=== PATIENT | male | born 1960 | race African-American/Black ===

== ENCOUNTER 2016-08-19 15:34 | Emergency (ER) | payer OTHER ==
[~2016-08-19] VITALS: Ht 157.5 cm; Wt 77.5 kg
[2016-08-19 15:55] VITALS: Ht 157.5 cm; Wt 77.5 kg
[2016-08-19] MEDS ORDERED: SOD CHLORIDE 0.9% 1,000 ML IV STA (16:27)
[2016-08-19] MEDS ORDERED: SOD CHLORIDE 0.9% 1,000 ML IV ONE (16:30)
[2016-08-19] MEDS ORDERED: IBUPROFEN 600 MG TAB PO ONE (16:30)
--- NOTE | 2016-08-19 16:54 | RADRPT ---
PROCEDURE: XR Chest. CLINICAL INDICATION: Shortness of breath. Abdominal pain. TECHNIQUE: Single frontal view. COMPARISON: None. FINDINGS: The right lung is clear. There is left basilar air space disease consistent with atelectasis or pne umonia. There is a small left pleural effusion. The heart size is normal. There is no pleural effusion. There is no pneumothorax. IMPRESSION: 1. Left basilar atelectasis or pneumonia. 2. Small left pleural effusion. 3. Otherwise normal chest x-ray. RPTAT: QQ .Topher Ovalle MD, MD Date Time Electronically viewed and signed by .Topher Ovalle MD, MD on 08/19/2016 16:53 .R/
[2016-08-19] MEDS ORDERED: CEFTRIAXONE 1 GM/50 ML (PMX) 50 ML IVPB ONE (17:00)
[2016-08-19 17:04] LABS: ADD SCAN DIFF NO; BASOPHILS % 0.2 % (0.0-2.0); EOSINOPHILS # 0.2 10^3/ul (0.0-0.5); EOSINOPHILS % 1.4 % (0.0-7.0); HEMATOCRIT 43.5 % (42.0-52.0); HEMOGLOBIN 13.7 g/dl (14.0-18.0); LYMPHOCYTES # 1.9 10^3/ul (0.8-2.9); LYMPHOCYTES % 14.7 % (15.0-51.0); MEAN CORPUSCULAR HEMOGLOBIN 22.3 pg (29.0-33.0); MEAN CORPUSCULAR HGB CONC 31.5 g/dl (32.0-37.0); MEAN CORPUSCULAR VOLUME 70.8 fl (82.0-101.0); MEAN PLATELET VOLUME 9.6 fl (7.4-10.4); MONOCYTE # 1.4 10^3/ul (0.3-0.9); MONOCYTES % 10.5 % (0.0-11.0); NEUTROPHIL # 9.3 10^3/ul (1.6-7.5); NEUTROPHILS % 72.3 % (39.0-77.0); PLATELET COUNT 231 10^3/UL (140-415); RED BLOOD COUNT 6.14 10^6/ul (4.70-6.10); RED CELL DISTRIBUTION WIDTH 17.2 % (11.5-14.5); WHITE BLOOD COUNT 12.8 10^3/ul (4.8-10.8)
[2016-08-19 17:18] LABS: ADD UMIC NO; UR ASCORBIC ACID NEGATIVE (NEGATIVE); UR BILIRUBIN (Dip) NEGATIVE (NEGATIVE); UR BLOOD (Dip) NEGATIVE (NEGATIVE); UR CLARITY CLEAR (CLEAR); UR COLOR STRAW (YELLOW); UR GLUCOSE (Dip) NEGATIVE (NEGATIVE); UR KETONES (Dip) NEGATIVE (NEGATIVE); UR LEUKOCYTE ESTERASE (Dip) NEGATIVE Leu/ul (NEGATIVE); UR NITRITE (Dip) NEGATIVE (NEGATIVE); UR SPECIFIC GRAVITY (Dip) 1.005 (1.003-1.030); UR TOTAL PROTEIN (Dip) NEGATIVE (NEGATIVE); UR UROBILINOGEN (Dip) NEGATIVE (NEGATIVE)
[2016-08-19 17:25] LABS: ALANINE AMINOTRANSFERASE 20 IU/L (13-69); ALBUMIN 4.6 g/dl (3.3-4.9); ALBUMIN/GLOBULIN RATIO 1.35; ALKALINE PHOSPHATASE 135 IU/L (42-121); ANION GAP 12 (8-16); ASPARTATE AMINO TRANSFERASE 15 IU/L (15-46); BILIRUBIN,INDIRECT 0.3 mg/dl (0-1.1); BILIRUBIN,TOTAL 0.3 mg/dl (0.2-1.3); BLOOD UREA NITROGEN 7 mg/dl (7-20); CALCIUM 9.3 mg/dl (8.4-10.2); CARBON DIOXIDE 27 mmol/L (21-31); CHLORIDE 98 mmol/L (97-110); CREATININE 1.01 mg/dl (0.61-1.24); GLUCOSE 101 mg/dl (70-220); SODIUM 134 mmol/L (135-144)
[2016-08-19] MEDS ORDERED: morphine 4 MG/ML VIAL IV STA (17:31)
[2016-08-19] MEDS ORDERED: ONDANSETRON 4 MG INJ IV STA (17:31)
[2016-08-19 17:35] LABS: TROPONIN-I < 0.012 ng/ml (0.00-0.12)
[2016-08-19] MEDS ORDERED: IOHEXOL 100 ML ONE (17:57)
[2016-08-19] MEDS ORDERED: IOHEXOL 350MG/ML 50 ML BTL ONE (17:57)
[2016-08-19] MEDS ORDERED: SOD CHLORIDE 0.9% 100 ML ONE (17:57)
[2016-08-19] MEDS ORDERED: AZITHROMYCIN 500MG/NS (PMX) 250 ML IVPB ONE (18:00)
--- NOTE | 2016-08-19 18:42 | ERA ---
ER Documentation Chief Complaint Date/Time DATE: 08/19/16 TIME: 18:32 Chief Complaint Complains of a cough with SOB HPI 56-year-old man complains of sharp nonexertional nonradiating chest pain or shortness of breath with cough 3 days. Patient has a history of pulmonary embolism diagnosed in June 2016 but states he has been off of his anticoagulant therapy 1 month. He denies vomiting or diarrhea, no headache or blurry vision , no calf or leg swelling. Patient has a history of hypertension and has not been using his medications. ROS All systems reviewed and are negative except as per history of present illness. Medications Home Meds No Active Prescriptions or Reported Meds Allergies Allergies: Coded Allergies: No Known Allergy (Unverified , 08/19/16) PMhx/Soc Hypertension, chronic pain syndrome, pulmonary embolism History of Surgery: Yes (shoulder sx) Anesthesia Reaction: No Hx Neurological Disorder: No Hx Respiratory Disorders: Yes (PE IN JUNE 2016) Hx Cardiac Disorders: Yes (HTN) Hx Psychiatric Problems: No Hx Miscellaneous Medical Probl: No Hx Alcohol Use: No Hx Substance Use: No Hx Tobacco Use: Yes Smoking Status: Former smoker FmHx Family History: No diabetes Physical Exam Vitals Vital Signs Date Time Temp Pulse Resp B/P Pulse Ox O2 Delivery O2 Flow Rate FiO2 08/19/16 16:53 Nasal Cannula 2 08/19/16 16:24 99.6 70 16 189/95 99 Room Air 08/19/16 15:55 100.4 69 20 200/103 98 Physical Exam GENERAL: Well-developed, well-nourished, well-nourished, appears dehydrated, nontoxic in appearance, oxygen saturation 98% on room air. Febrile. HEENT: Dry mucous membranes, pink conjunctiva, no cervical spine tenderness or step-off deformities, no goiter, no jaundice or icterus, extraocular movements intact without pain. No submandibular induration, and no pharyngeal erythema NEURO: Alert and oriented 3, cranial nerves II through XII intact bilaterally, pupils equal round reactive to light, no focal deficits or facial asymmetry, sensation intact distally Strength 5/5 in upper and lower extremities bilaterally CARDIAC: Regular rate and rhythm, no murmurs rubs or gallops LUNGS: Clear bilaterally no wheezing crackles or stridor ABDOMEN: Soft nontender, no guarding, no rigidity, no rebound, no psoas sign no obturator sign. Normoactive bowel sounds SKIN: Warm and dry to touch, no abrasions, contusions, or hematomas, no lacerations, no ecchymosis, no target lesions, and without ulcers EXTREMITIES: No clubbing cyanosis or edema, calves are bilaterally symmetrical, no Homans sign, no popliteal cord sign. Distal pulses equal and bilateral PSYCH: Normal affect without agitation or irritability Result Diagram: 08/19/16 1647 08/19/16 1647 Results 24 hrs Laboratory Tests Test 08/19/16 16:47 White Blood Count 12.810^3/ul Red Blood Count 6.1410^6/ul Hemoglobin 13.7g/dl Hematocrit 43.5% Mean Corpuscular Volume 70.8fl Mean Corpuscular Hemoglobin 22.3pg Mean Corpuscular Hemoglobin Concent 31.5g/dl Red Cell Distribution Width 17.2% Platelet Count 35659^3/UL Mean Platelet Volume 9.6fl Neutrophils % 72.3% Lymphocytes % 14.7% Monocytes % 10.5% Eosinophils % 1.4% Basophils % 0.2% Nucleated Red Blood Cells % 0.0/100WBC Neutrophils # 9.310^3/ul Lymphocytes # 1.910^3/ul Monocytes # 1.410^3/ul Eosinophils # 0.210^3/ul Basophils # 0.010^3/ul Nucleated Red Blood Cells # 0.010^3/ul Urine Color STRAW Urine Clarity CLEAR Urine pH 7.0 Urine Specific [place] 1.005 Urine Ketones NEGATIVEmg/dL Urine Nitrite NEGATIVEmg/dL Urine Bilirubin NEGATIVEmg/dL Urine Urobilinogen NEGATIVEmg/dL Urine Leukocyte Esterase NEGATIVELeu/ul Urine Hemoglobin NEGATIVEmg/dL Urine Glucose NEGATIVEmg/dL Urine Total Protein NEGATIVEmg/dl Sodium Level 134mmol/L Potassium Level 3.0mmol/L Chloride Level 98mmol/L Carbon Dioxide Level 27mmol/L Anion Gap 12 Blood Urea Nitrogen 7mg/dl Creatinine 1.01mg/dl Glucose Level 101mg/dl Lactic Acid Level 1.3mmol/L Calcium Level 9.3mg/dl Total Bilirubin 0.3mg/dl Direct Bilirubin 0.00mg/dl Indirect Bilirubin 0.3mg/dl Aspartate Amino Transf (AST/SGOT) 15IU/L Alanine Aminotransferase (ALT/SGPT) 20IU/L Alkaline Phosphatase 135IU/L Troponin I < 0.012ng/ml Total Protein 8.0g/dl Albumin 4.6g/dl Globulin 3.40g/dl Albumin/Globulin Ratio 1.35 Lipase 38U/L Current Medications Medications (Trade) Dose Ordered Sig/Richelle Route PRN Reason Start Time Stop Time Status Last Admin Dose Admin Sodium Chloride (NS) 1,000 ml @ 1,000 mls/hr Q1H STAT IV 08/19/16 16:27 08/19/16 17:26 DC 08/19/16 17:15 Ibuprofen 600 mg 600 mg ONCE ONCE PO 08/19/16 16:30 08/19/16 16:31 DC 08/19/16 17:15 Sodium Chloride 1,000 ml @ 1,000 mls/hr Q1H ONCE IV 08/19/16 16:30 08/19/16 17:29 DC 08/19/16 17:16 Ceftriaxone Sodium (Rocephin) 50 ml @ 100 mls/hr ONCE ONCE IVPB 08/19/16 17:00 08/19/16 17:29 DC 08/19/16 17:15 Clonidine (Catapres) 0.1 mg ONCE ONCE PO 08/19/16 17:00 08/19/16 17:01 DC 08/19/16 17:15 Morphine Sulfate (morphine) 4 mg ONCE STAT IV 08/19/16 17:31 08/19/16 17:33 DC 08/19/16 17:44 Ondansetron HCl 4 mg 4 mg ONCE STAT IV 08/19/16 17:31 08/19/16 17:33 DC 08/19/16 17:44 Azithromycin (Zithromax 500mg/ NS (Pmx)) 250 ml @ 250 mls/hr ONCE ONCE IVPB 08/19/16 18:00 08/19/16 18:59 08/19/16 17:44 IV Flush 10 ml 10 ml STK-MED ONCE .ROUTE 08/19/16 17:57 08/19/16 17:58 DC Sodium Chloride 100 ml @ ud STK-MED ONCE .ROUTE 08/19/16 17:57 08/19/16 17:58 DC Iohexol (Omnipaque) 100 ml @ ud STK-MED ONCE .ROUTE 08/19/16 17:57 08/19/16 17:58 DC Iohexol (Omnipaque 350mg/ ml) 50 ml STK-MED ONCE .ROUTE 08/19/16 17:57 08/19/16 17:58 DC Procedures/MDM IV line was established patient was placed on advertising sales agent rhythm strip revealed a sinus rhythm at about 60 bpm with upright P and T waves. Patient was febrile. Blood and urine cultures have been ordered results are pending I will follow-up. Patient received about 2.5 L normal saline IV, ibuprofen 600 mg p.o., and ceftriaxone 1 g IV. EKG performed, read by me: 63 bpm, normal sinus rhythm, normal axis, no acute ST segment changes, narrow QRS complex, with good R-wave progression in precordial leads. Chest X-ray 1V Interpreted by me: Soft Tissue: No acute abnormalities Bones: No acute abnormalities Mediastinum/Cardiac Silhouette/Lungs: Small pleural effusion on the left side, possible early infiltrate CT angiogram of the chest has been ordered to rule out pulmonary embolism. Results are pending I will follow-up, although anticoagulant therapy will be deferred to PMD pending CTA I also added azithromycin 500 mg IV 1. CBC was unremarkable, electrolytes normal, liver function tests normal, troponin was negative. Lactic acid was low at 1.3. I do not suspect sepsis. I do not suspect sepsis. Patient was initially hypertensive and received clonidine 0.1 mg p.o., also administered morphine and Zofran IV. Critical Care: Time: 37 minutes, this was time separate from other billable procedures. Treatments/Evaluations: Close monitoring and treatment of unstable vital signs, cardiorespiratory, and neurologic status, while maintaining tight balance of fluid, respiratory, and cardiac interventions. Patient will be admitted to telemetry setting for continued medical management and pulmonology consultation. Departure Diagnosis: Primary Impression: Pulmonary embolism Qualified Code: I26.09 - Other acute pulmonary embolism with acute cor pulmonale Additional Impressions: Pneumonia Qualified Code: J18.1 - Pneumonia of left lower lobe due to infectious organism Hypertension Qualified Code: I10 - Essential hypertension Chest pain Qualified Code: R07.9 - Chest pain, unspecified type Condition: STAN Mccormick MD Aug 19, 2016 18:42
[2016-08-19] MEDS ORDERED: SOD CHLORIDE 0.9% 500 ML IV ONE (19:00)
[2016-08-19] MEDS ORDERED: ACETAMINOPHEN 325 MG TAB PO PRN (19:30)
[2016-08-19] MEDS ORDERED: morphine 2 MG INJ IV PRN (19:30)
[2016-08-19] MEDS ORDERED: NACL 0.9% 3 ML SYG IV SCH (19:30)
[2016-08-19] MEDS ORDERED: ONDANSETRON 4 MG INJ IV PRN (19:30)
--- NOTE | 2016-08-19 20:04 | RADRPT ---
PROCEDURE: CT chest with contrast/PE protocol CLINICAL INDICATION: Chest pain and shortness of breath. Clinical concern for pulmonary embolism. History of hypertension and pulmonary embolism in June 2016 TECHNIQUE: The study was performed from the thoracic inlet to the upper abdomen with the use of 12 0 cc of Omnipaque 350 intravenous contrast material per PE protocol. Coronal/sagittal reformatted im ages and coronal MIP images were generated. The images were reviewed on a PACS workstation. CTDIvol = 38.96 mGy and DLP= 546.38 mGycm. COMPARISON: Chest x-ray 08/19/2016 FINDINGS: Lungs, airway and pleura: The trachea and bronchi are patent as well as normal in caliber. Patchy ground-glass infiltrate within the inferior lingula and majority of the left lower lobe is concernin g for pneumonitis/pneumonia with additional subsegmental atelectasis of the left greater than right lower lobe. There is no evidence of mass. Subpleural bullous emphysema of the upper lobes is prese nt. The pleural spaces are clear, without effusions. Mediastinum, sebastián and cardiovascular: The heart is mildly enlarged. There is no evidence for peric ardial effusion. The thoracic aorta is normal in caliber and without evidence of dissection. Fillin g defects in the pulmonary arteries are present greater on the left in the first through third order branches of the left lower lobe with additional embolus and the second order branch of the left upp er lobe (series 3 images 80-118). Additional pulmonary emboli are present within the right lower lo be, second and third order branches. No pulmonary saddle embolism is present. There is no evidence o f right ventricular strain pattern. The azygos vein is not dilated There is no evidence for hilar m ass and no mediastinal adenopathy is present. The esophagus is normal in caliber. Osseous structures and musculoskeletal findings: There is preservation of bone architecture and min eralization with no evidence for fracture, lytic or blastic lesion. No chest wall abnormalities are present. The axillary regions are unremarkable. Visualized upper abdomen: No abnormalities are identified. The adrenal glands are normal bilateral ly. RPTAT:HJJR IMPRESSION: 1. Bilateral pulmonary emboli involving the left greater than right lower lobe without evidence of r ight ventricular strain pattern, the clot burden estimated as moderate. 2. Ground-glass infiltrates of the inferior lingula and left lower lobe consistent with pneumonia s uperimposed upon bibasilar subsegmental atelectasis and subpleural emphysema. 3. Mild cardiomegaly. 4. Critical results are discussed by telephone with Dr. Weber at 20:04. Physician Lianna Date Time Electronically viewed and signed by Dereck Bradshaw Physician on 08/19/2016 20:04 JR/
[2016-08-20 01:00] VITALS: BP 147/109; PULSE 70; RESP 24; TEMP 98.2
[2016-08-20] MEDS ORDERED: ENOXAPARIN 40 MG/0.4 ML SYG SC SCH (09:00)
[2016-08-20] MEDS ORDERED: CEFTRIAXONE 1 GM/50 ML (PMX) 50 ML IVPB SCH (17:00)
== END 2016-08-20 01:31 | disposition left against medical advice (07) ==
LOC: E/R 15:34
DX: I26.09 Other pulmonary embolism with acute cor pulmonale (principal); J18.1 Lobar pneumonia, unspecified organism; I10 Essential (primary) hypertension; R07.9 Chest pain, unspecified; Z87.891 Personal history of nicotine dependence
CPT/HCPCS: 36415; 71010; 71275; 80053; 81003; 83605; 83690; 84484; 85025; 87040; 87086; 93005; 96374; 96375; 96376; J0456; J0696; J2270; J2405; J7030; J7040; Q9967; Z7502; Z7610

== ENCOUNTER 2016-08-20 14:20 | Inpatient (IN) | payer OTHER ==
[~2016-08-20] VITALS: Ht 172.7 cm; Wt 70.7 kg
[2016-08-20] MEDS ORDERED: ENOXAPARIN 80 MG/0.8 ML SYG SC STA (14:51)
[2016-08-20] MEDS ORDERED: ONDANSETRON 4 MG INJ IV STA (14:58)
[2016-08-20] MEDS ORDERED: IPRATROPIUM (NEB) 0.5 MG/2.5 ML AMP NEB STA (14:58)
[2016-08-20] MEDS ORDERED: HYDROmorphONE 1 MG/ML SYG IV STA (14:58)
[2016-08-20] MEDS ORDERED: ALBUTEROL 0.083% (NEB) 2.5 MG/3 ML AMP NEB STA (14:58)
--- NOTE | 2016-08-20 15:03 | ERA ---
ER Documentation Chief Complaint Date/Time DATE: 08/20/16 TIME: 14:59 Chief Complaint sob x 4 days HPI This is a 56-year-old -[place] male with known history of a pulmonary embolism and hypertension. The patient was diagnosed in June 2016 at [facility] with a pulmonary embolism. He had been taking Lovenox but indicates for the past month he had not taken any anticoagulants. He continued to feel very short of breath and therefore presented to [facility] less than 24 hours ago for reevaluation. A CT scan angiogram performed by the emergency room physician who evaluated the patient at the time and given that the patient had bilateral pulmonary emboli with the left greater than the right. The patient also had a chest radiograph that showed a questionable left basilar pneumonia. The patient had been admitted under the care of Dr. Styles and had been given antibiotics however the patient stated he had to leave AGAINST MEDICAL ADVICE as he lives in a motor home and was concerned that he would lose his home as he had a document that he needed to sign. He returns today for persistent pain over the bilateral thoracic region, difficulty breathing and shortness of breath. He denies any hemoptysis hematemesis or melanotic stools. He smokes tobacco and denies a productive or nonproductive cough. He has had no fevers or shaking no chills. He also has a history of hypertension and has not taken any of his medications according to his fiance. He denies a headache. He has no chest pain or pressure that radiates to the neck arm back or jaw ROS All systems reviewed and are negative except as per history of present illness. Medications Home Meds No Active Prescriptions or Reported Meds Allergies Allergies: Coded Allergies: No Known Allergy (Unverified , 08/20/16) PMhx/Soc History of Surgery: Yes (shoulder sx) Anesthesia Reaction: No Hx Neurological Disorder: No Hx Respiratory Disorders: Yes (PE IN JUNE 2016) Hx Cardiac Disorders: Yes (HTN) Hx Psychiatric Problems: No Hx Miscellaneous Medical Probl: No Hx Alcohol Use: No Hx Substance Use: No Hx Tobacco Use: Yes Physical Exam Vitals Vital Signs Date Time Temp Pulse Resp B/P Pulse Ox O2 Delivery O2 Flow Rate FiO2 08/20/16 14:22 99.7 71 18 166/90 93 Physical Exam Constitutional:Well-developed. Well-nourished. Patient moaning in pain. HEENT:Normocephalic. Atraumatic.Pupils were equal round reactive to light. Moist mucous membranes.No tonsillar exudates. Neck: No nuchal rigidity. No lymphadenopathy. No posterior cervical spine tenderness or step-offs. Respiratory: Not using accessory muscles of respiration.Lungs were clear to auscultation bilaterally. No rhonchi. No rales. No wheezing. Cardiovascular: Regular rate regular rhythm.No murmurs. No rubs were appreciated.S1, S2 normal. Distal pulses are palpable 2+ bilaterally. GI: Abdomen was soft. Nontender. Non Distended. No pulsatile abdominal masses or bruits. No rebound. No guarding. Bowel sounds were present and normal. Muscle skeletal: Full range of motion of both the upper and lower extremities bilaterally.Normal muscle tone.No assymetrical calf tenderness or swelling. Skin: No petechia, no purpura. No lesions on the palms or the soles of the feet. No maculopapular rash. NEURO: Patient was alert, awake, orientated x3.No facial droop. Gait observed and normal with no ataxia.Speech had regular rate and rhythm. No focal neurological deficits. Result Diagram: 08/20/16 1510 Results 24 hrs Laboratory Tests Test 08/20/16 15:10 White Blood Count 15.210^3/ul Red Blood Count 6.4510^6/ul Hemoglobin 14.6g/dl Hematocrit 46.7% Mean Corpuscular Volume 72.4fl Mean Corpuscular Hemoglobin 22.6pg Mean Corpuscular Hemoglobin Concent 31.3g/dl Red Cell Distribution Width 16.1% Platelet Count 70490^3/UL Mean Platelet Volume 9.7fl Neutrophils % 76.6% Lymphocytes % 11.8% Monocytes % 10.3% Eosinophils % 0.3% Basophils % 0.3% Nucleated Red Blood Cells % 0.0/100WBC Neutrophils # 11.710^3/ul Lymphocytes # 1.810^3/ul Monocytes # 1.610^3/ul Eosinophils # 0.110^3/ul Basophils # 0.010^3/ul Nucleated Red Blood Cells # 0.010^3/ul Prothrombin Time 12.8Sec Prothrombin Time Ratio 1.0 INR International Normalized Ratio 0.96 Activated Partial Thromboplast Time 27.9Sec Current Medications Medications (Trade) Dose Ordered Sig/Richelle Route PRN Reason Start Time Stop Time Status Last Admin Dose Admin Enoxaparin Sodium (Lovenox) 77 mg ONCE STAT SC 08/20/16 14:51 08/20/16 14:55 DC Hydromorphone HCl (Dilaudid) 1 mg ONCE STAT IV 08/20/16 14:58 08/20/16 14:59 DC Ondansetron HCl (Zofran Inj) 4 mg ONCE STAT IV 08/20/16 14:58 08/20/16 14:59 DC Albuterol (Proventil 0.083% (Neb)) 5 mg ONCE STAT NEB 08/20/16 14:58 08/20/16 15:00 DC Ipratropium [place] (Atrovent 0.02% (Neb)) 0.5 mg ONCE STAT NEB 08/20/16 14:58 08/20/16 15:00 DC Ondansetron HCl (Zofran Inj) 4 mg BRIDGE ORDER PRN IV NAUSEA AND/OR VOMITING 08/20/16 16:00 08/21/16 15:59 Procedures/MDM This patient presented to the emergency department with a known history of a pulmonary embolism. The patient was immediately placed in a child monitor continuous pulse oximetry and IV access was established by nursing staff. The patient received nebulizer treatments and for analgesic control received intravenous Dilaudid and Zofran. I do not feel is necessary to repeat the CT scan at this time as I reviewed the results from yesterday which indicated bilateral pulmonary emboli. The patient was given subcutaneous Lovenox in the emergency department after ancillary laboratory work and coagulation panel was obtained. Blood cultures had already been drawn yesterday. The patient had a questionable pneumonia and had been given IV antibiotics on his previous hospital visit less than 24 hours ago. Those antibiotics which included azithromycin and ceftriaxone will continue to be reordered by myself. 12 Lead EKG tracing ordered and reviewed by myself showed: Normal sinus rhythm of 69 bpm and no arrhythmia. NM interval normal. QRS duration normal. No ST segment elevation No ST segment depression. No changes consistent with acute ischemia. I repeated a 1 view chest radiograph which showed a persistent atelectasis in the left basilar region. The patient will be admitted in serious condition to the medical surgical floor under the care of Dr. Jiang who I spoke with and will be admitted with an anticipated stay of greater than 2 midnights Critical Care: Time: 35 minutes Treatments/Evaluations: Close monitoring and treatment of unstable vital signs, cardiorespiratory, and neurologic status, while maintaining tight balance of fluid, respiratory, and cardiac interventions. Time does not include performing any of the above billable procedures. Departure Diagnosis: Primary Impression: Pulmonary embolism Qualified Code: I27.82 - Other chronic pulmonary embolism without acute cor pulmonale Additional Impression: Pneumonia Qualified Code: J18.9 - Pneumonia of left lung due to infectious organism, unspecified part of lung Condition: Serious KACIE QUINN Aug 20, 2016 15:03
[2016-08-20 15:16] LABS: ADD SCAN DIFF NO
[2016-08-20 15:19] LABS: ABNORMAL IP MESSAGE 1; BASOPHILS % 0.3 % (0.0-2.0); EOSINOPHILS # 0.1 10^3/ul (0.0-0.5); EOSINOPHILS % 0.3 % (0.0-7.0); HEMATOCRIT 46.7 % (42.0-52.0); HEMOGLOBIN 14.6 g/dl (14.0-18.0); LYMPHOCYTES # 1.8 10^3/ul (0.8-2.9); LYMPHOCYTES % 11.8 % (15.0-51.0); MEAN CORPUSCULAR HEMOGLOBIN 22.6 pg (29.0-33.0); MEAN CORPUSCULAR HGB CONC 31.3 g/dl (32.0-37.0); MEAN CORPUSCULAR VOLUME 72.4 fl (82.0-101.0); MEAN PLATELET VOLUME 9.7 fl (7.4-10.4); MONOCYTE # 1.6 10^3/ul (0.3-0.9); MONOCYTES % 10.3 % (0.0-11.0); NEUTROPHIL # 11.7 10^3/ul (1.6-7.5); NEUTROPHILS % 76.6 % (39.0-77.0); PLATELET COUNT 251 10^3/UL (140-415); RED BLOOD COUNT 6.45 10^6/ul (4.70-6.10); RED CELL DISTRIBUTION WIDTH 16.1 % (11.5-14.5); WHITE BLOOD COUNT 15.2 10^3/ul (4.8-10.8)
[2016-08-20 15:33] LABS: INR 0.96; PROTIME 12.8 Sec (12.2-14.2)
[2016-08-20 15:34] LABS: PARTIAL THROMBOPLASTIN TIME 27.9 Sec (25.0-35.0)
[2016-08-20 15:36] LABS: ALBUMIN 4.9 g/dl (3.3-4.9); ALBUMIN/GLOBULIN RATIO 1.25; BILIRUBIN,INDIRECT 0.8 mg/dl (0-1.1); BILIRUBIN,TOTAL 0.8 mg/dl (0.2-1.3); CALCIUM 9.9 mg/dl (8.4-10.2); CREATININE 1.03 mg/dl (0.61-1.24); TOTAL PROTEIN 8.8 g/dl (6.1-8.1)
[2016-08-20] MEDS ORDERED: CIPROFLOXACIN 400MG/D5W 200 ML IVPB STA (15:40)
[2016-08-20] MEDS ORDERED: AZITHROMYCIN 500MG/NS (PMX) 250 ML IV STA (15:40)
[2016-08-20 15:49] LABS: CK-MB 0.29 ng/ml (0.0-2.4); TROPONIN-I 0.019 ng/ml (0.00-0.12)
--- NOTE | 2016-08-20 15:52 | RADRPT ---
PROCEDURE: XR Chest. CLINICAL INDICATION: Chest pain. TECHNIQUE: Single frontal view of the chest was obtained. COMPARISON: None FINDINGS: Monitoring electrodes project across the chest. There are degenerative osteophytes in the thoracic spine. The heart is enlarged. The cardiomediastinal silhouette and hilar structures are normal. Th e pulmonary vasculature is upper limits of normal. There is a left-sided aorta. There is a left lowe r lobe infiltrate silhouetting the left diaphragm. There is infiltrate silhouetting portions of the left heart border. A left pleural effusion is not excluded. The right costophrenic angle is normal . IMPRESSION: 1. Infiltrates identified in the lingula and left lower lobe suspicious for pneumonia. A left pleur al effusion is not excluded. RPTAT:AAJJ Physician Richelle Date Time Electronically viewed and signed by Lawrence Enriquez Physician on 08/20/2016 15:52 JOSE/
[2016-08-20] MEDS ORDERED: ONDANSETRON 4 MG INJ IV PRN ×2 (16:00→21:00)
[2016-08-20] MEDS ORDERED: LORAZEPAM 2 MG INJ IV ONE (16:00)
[2016-08-20 16:25] LABS: MODE MASK - SIMPLE; MetHgb Venous 0.3 %; Sample Type Blood venous; Venous COHb 1.8 %; Venous Fraction OxyHgb 33.9 %; Venous Total Hemglobin 15.5 g/dl
--- NOTE | 2016-08-20 18:40 | HP ---
Date/Time of Note Date/Time of Note DATE: 08/20/16 TIME: 18:31 Assessment/Plan VTE Prophylaxis VTE Prophylaxis Intervention: SCD's Lines/Catheters IV Catheter [facility]from [facility]): Saline Lock Assessment/Plan Assessment/Plan - Pulmonary embolism, continue Lovenox. Dr. Lopez will be following patient in pulmonology consultation. - Pneumonia, continue broad-spectrum antibiotics. - Hypertension, continue hydralazine as needed for systolic blood pressure above 170 -Tobacco dependence, cessation is strongly advised. Further recommendations based on clinical course. End of care discussed with Dr. Madrid. HPI/ROS Admit Date/Time Admit Date/Time Hx of Present Illness Patient is a 56-year-old -[place] male with history of pulmonary embolism and hypertension. Patient was diagnosed with pulmonary embolism in June 2016 and been taking Lovenox she stopped taking last month. Patient presented to the emergency room last night with complaints of shortness of breath. He underwent CT scan and was diagnosed with pneumonia, bilateral pulmonary emboli as well as cardiomegaly. Patient left AGAINST MEDICAL ADVICE at 1:30 in the morning. Patient came back in the emergency room with complaints of bilateral thoracic pain and shortness of breath. Patient is currently lethargic but easily arousable most of the history was obtained from medical records talking to patient talking to patient's girlfriend Marie at the bedside. Patient denies any chest pain denies any nausea vomiting denies any bilateral lower extremity swelling denies fevers chills. ROS 12 point review of systems is negative unless mentioned in HPI PMH/Family/Social Past Medical History Medical History: hypertension, other (Pulmonary emboli) Past Surgical History Left shoulder surgery details are not available Family History Significant Family History: no pertinent family hx Social History Alcohol Use: occasionally Smoking Status: Current every day smoker Drug Use: none Exam/Review of Systems Vital Signs Vitals Vital Signs Date Time Temp Pulse Resp B/P Pulse Ox O2 Delivery O2 Flow Rate FiO2 08/20/16 17:19 80 30 144/89 99 Nasal Cannula 3.0 08/20/16 14:22 99.7 Exam Constitutional: alert, oriented Psych: no complaints Head: atraumatic, normocephalic Eyes: nl conjunctiva Neck: supple Respiratory: diminished breath sounds Cardiovascular: nl pulses Gastrointestinal: non-tender, soft Musculoskeletal: nl extremities to inspection Extremities: normal pulses Neurological: nl mental status Skin: nl turgor Labs Result Diagram: 08/20/16 1510 08/20/16 1510 GUNJAN PETTY Aug 20, 2016 18:40
[2016-08-20 18:59] VITALS: BP 181/95; PULSE 79; RESP 18
[2016-08-20 19:31] VITALS: BP 165/81; RESP 18
[2016-08-20 20:00] VITALS: Ht 172.7 cm; Wt 70.7 kg
[2016-08-20] MEDS: AMLODIPINE 10 MG TAB PO SCH (21:26)
[2016-08-20] MEDS: HYDROCODONE/APAP (5/325) TAB PO PRN (21:27)
[2016-08-20] MEDS: ENOXAPARIN 80 MG/0.8 ML SYG SC SCH (21:36)
[2016-08-20] MEDS: ACETAMINOPHEN 325 MG TAB PO PRN (23:21)
[2016-08-21] MEDS: CEFTRIAXONE 1 GM/50 ML (PMX) 50 ML IVPB SCH ×2 (00:24→23:03)
[2016-08-21] MEDS: LEVOFLOXACIN 500MG/D5W (PMX) 100 ML IVPB SCH (01:25)
[2016-08-21 02:07] VITALS: BP 113/71; RESP 18
[2016-08-21] MEDS: HYDROCODONE/APAP (5/325) TAB PO PRN ×3 (02:35→18:36)
[2016-08-21] MEDS: morphine 2 MG INJ IV PRN ×2 (06:36→14:24)
[2016-08-21 07:39] VITALS: BP 130/76; RESP 18
[2016-08-21 08:17] LABS: ADD UMIC YES; UR BILIRUBIN (Dip) 1+ (NEGATIVE); UR BLOOD (Dip) NEGATIVE (NEGATIVE); UR CLARITY CLEAR (CLEAR); UR COLOR YELLOW (YELLOW); UR GLUCOSE (Dip) NEGATIVE (NEGATIVE); UR KETONES (Dip) NEGATIVE (NEGATIVE); UR LEUKOCYTE ESTERASE (Dip) NEGATIVE (NEGATIVE); UR NITRITE (Dip) NEGATIVE (NEGATIVE); UR TOTAL PROTEIN (Dip) 1+ (NEGATIVE); UR UROBILINOGEN (Dip) 1.0 E.U./dL (0.1-1.0)
[2016-08-21 08:42] LABS: ADD SCAN DIFF NO
[2016-08-21 08:47] LABS: ICTOTEST NEGATIVE (NEGATIVE)
[2016-08-21 08:53] LABS: ABNORMAL IP MESSAGE 1; BASOPHILS % 0.2 % (0.0-2.0); EOSINOPHILS # 0.1 10^3/ul (0.0-0.5); EOSINOPHILS % 0.8 % (0.0-7.0); HEMATOCRIT 43.8 % (42.0-52.0); HEMOGLOBIN 13.6 g/dl (14.0-18.0); LYMPHOCYTES # 1.8 10^3/ul (0.8-2.9); LYMPHOCYTES % 14.1 % (15.0-51.0); MEAN CORPUSCULAR HEMOGLOBIN 22.1 pg (29.0-33.0); MEAN CORPUSCULAR HGB CONC 31.1 g/dl (32.0-37.0); MEAN CORPUSCULAR VOLUME 71.3 fl (82.0-101.0); MEAN PLATELET VOLUME 9.9 fl (7.4-10.4); MONOCYTE # 1.7 10^3/ul (0.3-0.9); MONOCYTES % 12.9 % (0.0-11.0); NEUTROPHIL # 9.2 10^3/ul (1.6-7.5); NEUTROPHILS % 71.3 % (39.0-77.0); PLATELET COUNT 271 10^3/UL (140-415); RED BLOOD COUNT 6.14 10^6/ul (4.70-6.10); RED CELL DISTRIBUTION WIDTH 16.9 % (11.5-14.5); WHITE BLOOD COUNT 12.9 10^3/ul (4.8-10.8)
[2016-08-21 09:09] LABS: CALCIUM 9.3 mg/dl (8.4-10.2); CREATININE 1.26 mg/dl (0.61-1.24); POTASSIUM 3.6 mmol/L (3.5-5.1)
[2016-08-21] MEDS: ENOXAPARIN 80 MG/0.8 ML SYG SC SCH (09:59)
[2016-08-21 10:02] VITALS: BP 137/77; PULSE 69
[2016-08-21] MEDS: AMLODIPINE 10 MG TAB PO SCH (10:02)
--- NOTE | 2016-08-21 11:37 | RADRPT ---
PROCEDURE: XR Chest. CLINICAL INDICATION: Cough. TECHNIQUE: Two views. Frontal and lateral. COMPARISON: No prior study is available for comparison. FINDINGS: There is air space disease in the left mid and lower lung zones consistent with pneumonia. The righ t lung is clear. The heart size is normal. There is a small left pleural effusion. There is no pneumothorax. IMPRESSION: 1. Left mid and lower lung zone pneumonia. 2. Left pleural effusion. 3. Otherwise unremarkable chest x-ray. RPTAT: QQ .Topher Ovalle MD, MD Date Time Electronically viewed and signed by .Topher Ovalle MD, MD on 08/21/2016 11:36 .R/
--- NOTE | 2016-08-21 12:31 | CONS ---
Date/Time of Note Date/Time of Note DATE: 08/21/16 TIME: 12:27 Assessment/Plan Assessment/Plan Chief Complaint/Hosp Course Assessment 1. Recent PE DVT, likely noncompliance 2. Community acquired pneumonia 3 Questionable psychiatric disorder 4. Probable COPD with ongoing tobacco use. Plan. 1. Continue anticoagulation consider use of Eliquis 2. Continue antibiotics 3. Bronchodilators 4. Encourage smoking cessation Problems: Consultation Date/Type/Reason Admit Date/Time Date of Consultation: Aug 21, 2016 Reason for Consultation Evaluation of pulmonary embolus Hx of Present Illness 66-year-old gentleman who was originally diagnosed with PE and DVT more than a month ago at [facility] says he was discharged home on no anticoagulation. States he is taking no anticoagulation since his discharge. Presented with increasing shortness of breath orthopnea PND. Found to have persistent pulmonary emboli. In addition has evidence of possible underlying pneumonia. Patient is a poor historian and appears to have possible underlying psychiatric disorder. He has a positive tobacco history. Psychological: no complaints Past Medical History Medical History: hypertension, other (Pulmonary emboli) Social History Alcohol Use: occasionally Smoking Status: Current every day smoker Drug Use: none Exam/Review of Systems Vital Signs Vitals Vital Signs Date Time Temp Pulse Resp B/P Pulse Ox O2 Delivery O2 Flow Rate FiO2 08/21/16 10:02 69 137/77 08/21/16 07:39 100.1 18 91 08/20/16 22:03 Nasal Cannula 2.0 Intake and Output 08/20/16 08/20/16 08/21/16 15:00 23:00 07:00 Intake Total 450 ml 560 ml Output Total 600 ml Balance 450 ml -40 ml Exam GENERAL: VITAL SIGNS: per chart NECK: Supple. No JVD or lymphadenopathy. CARDIAC EXAM: S1, S2. No added sounds or murmurs. CHEST: clear bilaterally, No added sounds, rales or wheezes ABDOMEN: Soft, nontender. No guarding or rebound. EXTREMITIES: No cyanosis, clubbing or edema. NEUROLOGIC: Generalized weakness. No focal deficits. Results Result Diagram: 08/21/16 0750 08/21/16 0750 Results 24 hrs Laboratory Tests Test 08/20/16 14:51 08/20/16 15:10 08/20/16 23:30 08/21/16 07:50 Blood Gas Specimen Source Blood venous Arterial Blood Date Drawn 08/20/2016 4:18:59 PM Arterial Blood Gas Puncture Site VENOUS LINE Roberto Test N/A Venous Blood pH 7.310 L Venous Blood pCO2 (Temp Corrected) 55.9 H Venous Blood pO2 (Temp Corrected) 22.5 L Venous Blood HCO3 27.5 Venous Blood Oxygen Saturation 34.6 L Venous Blood Base Excess 0 Venous Blood Total Hemoglobin 15.5 Venous Blood Oxyhemoglobin 33.9 Venous Blood Methemoglobin 0.3 Carboxyhemoglobin 1.8 Blood Gas Temperature 37.0 Blood Gas Modality MASK - SIMPLE FiO2 45.0 Blood Gas Notified Whom M.D. Blood Gas Notified Time 08/20/2016 4:24:19 PM White Blood Count 15.2 H 12.9 H Red Blood Count 6.45 H 6.14 H Hemoglobin 14.6 13.6 L Hematocrit 46.7 43.8 Mean Corpuscular Volume 72.4 L 71.3 L Mean Corpuscular Hemoglobin 22.6 L 22.1 L Mean Corpuscular Hemoglobin Concent 31.3 L 31.1 L Red Cell Distribution Width 16.1 H 16.9 H Platelet Count 251 271 Mean Platelet Volume 9.7 9.9 Neutrophils % 76.6 71.3 Lymphocytes % 11.8 L 14.1 L Monocytes % 10.3 12.9 H Eosinophils % 0.3 0.8 Basophils % 0.3 0.2 Nucleated Red Blood Cells % 0.0 0.0 Neutrophils # 11.7 H 9.2 H Lymphocytes # 1.8 1.8 Monocytes # 1.6 H 1.7 H Eosinophils # 0.1 0.1 Basophils # 0.0 0.0 Nucleated Red Blood Cells # 0.0 0.0 Prothrombin Time 12.8 Prothrombin Time Ratio 1.0 INR International Normalized Ratio 0.96 Activated Partial Thromboplast Time 27.9 Sodium Level 143 143 Potassium Level 4.0 3.6 Chloride Level 96 L 97 Carbon Dioxide Level 28 28 Anion Gap 23 #H 22 H Blood Urea Nitrogen 7 14 Creatinine 1.03 1.26 H Glucose Level 117 114 Calcium Level 9.9 9.3 Total Bilirubin 0.8 Direct Bilirubin 0.00 Indirect Bilirubin 0.8 Aspartate Amino Transf (AST/SGOT) 22 Alanine Aminotransferase (ALT/SGPT) 21 Alkaline Phosphatase 135 H Creatine Kinase 104 Creatine Kinase Index 0.3 Creatinine Kinase MB (Mass) 0.29 Troponin I 0.019 B-Type Natriuretic Peptide 564 H Total Protein 8.8 H Albumin 4.9 Globulin 3.90 H Albumin/Globulin Ratio 1.25 Urine Color YELLOW Urine Clarity CLEAR Urine pH 6.0 Urine Specific [place] >=1.030 H Urine Ketones NEGATIVE Urine Nitrite NEGATIVE Urine Bilirubin 1+ H Urine Ictotest NEGATIVE Urine Urobilinogen 1.0 E.U./dL Urine Leukocyte Esterase NEGATIVE Urine Hemoglobin NEGATIVE Urine Glucose NEGATIVE Urine Total Protein 1+ H Medications Medications Current Medications Enoxaparin Sodium (Lovenox) 75 mg Q12 SC Last administered on 08/21/16 09:59; Admin Dose 75 MG; Start 08/20/16 at 21:00 Acetaminophen/ Hydrocodone Bitart ([place] (5/325)) 1 tab Q4H PRN PO FOR PAIN Last administered on 08/21/16 08:26; Admin Dose 1 TAB; Start 08/20/16 at 21:00 Amlodipine Besylate (Norvasc) 10 mg DAILY PO Last administered on 08/21/16 10: 02; Admin Dose 10 MG; Start 08/20/16 at 21:00 Zolpidem Tartrate (Ambien) 5 mg HS PRN PO INSOMNIA; Start 08/20/16 at 21:00 Acetaminophen (Tylenol Tab) 650 mg Q4H PRN PO PAIN AND OR ELEVATED TEMP Last administered on 08/20/16 23:21; Admin Dose 650 MG; Start 08/20/16 at 21:00 Ondansetron HCl 4 mg 4 mg Q6H PRN IV NAUSEA AND/OR VOMITING; Start 08/20/16 at 21:00 Ceftriaxone Sodium 50 ml @ 100 mls/hr Q24H IVPB Last administered on 00:24; Admin Dose 100 MLS/HR; Start 08/21/16 at 00:00 Levofloxacin/ Dextrose (Levaquin 500mg/ D5W 100 ml (Pmx)) 100 ml @ 100 mls/hr Q24H IVPB Last administered on 08/21/16 01:25; Admin Dose 100 MLS/HR; Start at 01:00 Morphine Sulfate (morphine) 2 mg Q3H PRN IV FOR SEVERE PAIN Last administered on 08/21/16 06:36; Admin Dose 2 MG; Start 08/21/16 at 03:30 BROOKLYN DUFFY MD, [facility] Aug 21, 2016 12:30
--- NOTE | 2016-08-21 14:28 | PN ---
Date/Time of Note Date/Time of Note DATE: 08/21/16 TIME: 14:25 Assessment/Plan VTE Prophylaxis VTE Prophylaxis Intervention: other Lines/Catheters [facility] Saline Lock Urinary Cath still in place: No Assessment/Plan Assessment/Plan - Pulmonary embolism, continue Lovenox. - Dr. Lopez will be following patient in pulmonology consultation. - Recent PE/DVT - started on Eliquis 10 mg po BID - Pneumonia, continue broad-spectrum antibiotics. - Hypertension, continue hydralazine as needed for systolic blood pressure above 170 -Tobacco dependence, cessation is strongly advised. Further recommendations based on clinical course. End of care discussed with Dr. Madrid. Subjective 24 Hr Interval Summary Eyes: no complaints ENT: no complaints Respiratory: no complaints Cardiovascular: no complaints Gastrointestinal: no complaints Genitourinary: no complaints Musculoskeletal: no complaints Exam/Review of Systems Vital Signs Vitals Vital Signs Date Time Temp Pulse Resp B/P Pulse Ox O2 Delivery O2 Flow Rate FiO2 08/21/16 10:02 69 137/77 08/21/16 07:39 100.1 18 91 08/20/16 22:03 Nasal Cannula 2.0 Intake and Output 08/20/16 08/20/16 08/21/16 15:00 23:00 07:00 Intake Total 450 ml 560 ml Output Total 600 ml Balance 450 ml -40 ml Exam Constitutional: alert, oriented, well developed Respiratory: diminished breath sounds Cardiovascular: nl pulses, regular rate and rhythm Gastrointestinal: soft Musculoskeletal: nl extremities to inspection Extremities: normal pulses Neurological: nl speech Results Result Diagram: 08/21/16 0750 08/21/16 0750 Results 24 hrs Laboratory Tests Test 08/20/16 14:51 08/20/16 15:10 08/20/16 23:30 08/21/16 07:50 Blood Gas Specimen Source Blood venous Arterial Blood Date Drawn 08/20/2016 4:18:59 PM Arterial Blood Gas Puncture Site VENOUS LINE Roberto Test N/A Venous Blood pH 7.310 L Venous Blood pCO2 (Temp Corrected) 55.9 H Venous Blood pO2 (Temp Corrected) 22.5 L Venous Blood HCO3 27.5 Venous Blood Oxygen Saturation 34.6 L Venous Blood Base Excess 0 Venous Blood Total Hemoglobin 15.5 Venous Blood Oxyhemoglobin 33.9 Venous Blood Methemoglobin 0.3 Carboxyhemoglobin 1.8 Blood Gas Temperature 37.0 Blood Gas Modality MASK - SIMPLE FiO2 45.0 Blood Gas Notified Whom M.D. Blood Gas Notified Time 08/20/2016 4:24:19 PM White Blood Count 15.2 H 12.9 H Red Blood Count 6.45 H 6.14 H Hemoglobin 14.6 13.6 L Hematocrit 46.7 43.8 Mean Corpuscular Volume 72.4 L 71.3 L Mean Corpuscular Hemoglobin 22.6 L 22.1 L Mean Corpuscular Hemoglobin Concent 31.3 L 31.1 L Red Cell Distribution Width 16.1 H 16.9 H Platelet Count 251 271 Mean Platelet Volume 9.7 9.9 Neutrophils % 76.6 71.3 Lymphocytes % 11.8 L 14.1 L Monocytes % 10.3 12.9 H Eosinophils % 0.3 0.8 Basophils % 0.3 0.2 Nucleated Red Blood Cells % 0.0 0.0 Neutrophils # 11.7 H 9.2 H Lymphocytes # 1.8 1.8 Monocytes # 1.6 H 1.7 H Eosinophils # 0.1 0.1 Basophils # 0.0 0.0 Nucleated Red Blood Cells # 0.0 0.0 Prothrombin Time 12.8 Prothrombin Time Ratio 1.0 INR International Normalized Ratio 0.96 Activated Partial Thromboplast Time 27.9 Sodium Level 143 143 Potassium Level 4.0 3.6 Chloride Level 96 L 97 Carbon Dioxide Level 28 28 Anion Gap 23 #H 22 H Blood Urea Nitrogen 7 14 Creatinine 1.03 1.26 H Glucose Level 117 114 Calcium Level 9.9 9.3 Total Bilirubin 0.8 Direct Bilirubin 0.00 Indirect Bilirubin 0.8 Aspartate Amino Transf (AST/SGOT) 22 Alanine Aminotransferase (ALT/SGPT) 21 Alkaline Phosphatase 135 H Creatine Kinase 104 Creatine Kinase Index 0.3 Creatinine Kinase MB (Mass) 0.29 Troponin I 0.019 B-Type Natriuretic Peptide 564 H Total Protein 8.8 H Albumin 4.9 Globulin 3.90 H Albumin/Globulin Ratio 1.25 Urine Color YELLOW Urine Clarity CLEAR Urine pH 6.0 Urine Specific [place] >=1.030 H Urine Ketones NEGATIVE Urine Nitrite NEGATIVE Urine Bilirubin 1+ H Urine Ictotest NEGATIVE Urine Urobilinogen 1.0 E.U./dL Urine Leukocyte Esterase NEGATIVE Urine Hemoglobin NEGATIVE Urine Glucose NEGATIVE Urine Total Protein 1+ H Medications Medications Current Medications Acetaminophen/ Hydrocodone Bitart ([place] (5/325)) 1 tab Q4H PRN PO FOR PAIN Last administered on 08/21/16 08:26; Admin Dose 1 TAB; Start 08/20/16 at 21:00 Amlodipine Besylate (Norvasc) 10 mg DAILY PO Last administered on 08/21/16 10: 02; Admin Dose 10 MG; Start 08/20/16 at 21:00 Zolpidem Tartrate (Ambien) 5 mg HS PRN PO INSOMNIA; Start 08/20/16 at 21:00 Acetaminophen (Tylenol Tab) 650 mg Q4H PRN PO PAIN AND OR ELEVATED TEMP Last administered on 08/20/16 23:21; Admin Dose 650 MG; Start 08/20/16 at 21:00 Ondansetron HCl 4 mg 4 mg Q6H PRN IV NAUSEA AND/OR VOMITING; Start 08/20/16 at 21:00 Ceftriaxone Sodium 50 ml @ 100 mls/hr Q24H IVPB Last administered on 00:24; Admin Dose 100 MLS/HR; Start 08/21/16 at 00:00 Levofloxacin/ Dextrose (Levaquin 500mg/ D5W 100 ml (Pmx)) 100 ml @ 100 mls/hr Q24H IVPB Last administered on 08/21/16 01:25; Admin Dose 100 MLS/HR; Start at 01:00 Morphine Sulfate (morphine) 2 mg Q3H PRN IV FOR SEVERE PAIN Last administered on 08/21/16 06:36; Admin Dose 2 MG; Start 08/21/16 at 03:30 Apixaban (Eliquis) 10 mg BID PO ; Start 08/21/16 at 21:00; Stop 08/28/16 at 09: 01 Apixaban (Eliquis) 5 mg BID PO ; Start 08/28/16 at 21:00 CRESENCIO DENISE Aug 21, 2016 14:28
[2016-08-21 15:11] VITALS: BP 169/78; RESP 71
[2016-08-21] MEDS: DOCUSATE SODIUM 100 MG CAP PO SCH (15:36)
[2016-08-21] MEDS: ACETAMINOPHEN 325 MG TAB PO PRN ×2 (15:40→23:00)
[2016-08-21 19:21] VITALS: BP 123/75; RESP 18
[2016-08-21] MEDS: APIXABAN 5 MG TABLET PO SCH (21:24)
[2016-08-21] MEDS: BISACODYL (EC) 5 MG TAB PO PRN (21:24)
[2016-08-21] MEDS: ZOLPIDEM 5 MG TAB PO PRN (21:26)
[2016-08-21] MEDS: GUAIFENESIN/DM 5ML CUP PO PRN (23:03)
[2016-08-22] MEDS: LEVOFLOXACIN 500MG/D5W (PMX) 100 ML IVPB SCH (00:59)
[2016-08-22 02:00] VITALS: BP 136/85; PULSE 62; RESP 18
[2016-08-22] MEDS: morphine 2 MG INJ IV PRN ×3 (05:42→18:56)
[2016-08-22] MEDS: GUAIFENESIN/DM 5ML CUP PO PRN ×2 (06:37→18:56)
[2016-08-22 07:27] VITALS: BP 163/91; RESP 18
[2016-08-22] MEDS: AMLODIPINE 10 MG TAB PO SCH (09:10)
[2016-08-22] MEDS: APIXABAN 5 MG TABLET PO SCH ×2 (09:10→20:11)
[2016-08-22] MEDS: DOCUSATE SODIUM 100 MG CAP PO SCH ×2 (09:10→20:11)
[2016-08-22] MEDS: BISACODYL (EC) 5 MG TAB PO PRN (09:13)
--- NOTE | 2016-08-22 12:12 | PN ---
Date/Time of Note Date/Time of Note DATE: 08/22/16 TIME: 12:09 Assessment/Plan VTE Prophylaxis VTE Prophylaxis Intervention: other Lines/Catheters IV [facility] Saline Lock Urinary Cath still in place: No Assessment/Plan Assessment/Plan - Pulmonary embolism, - Dr. Lopez will be following patient in pulmonology consultation. - Recent PE/DVT - started on Eliquis 10 mg po BID - Pneumonia, continue broad-spectrum antibiotics. - cough sec to above- Robitussin, Mucomyst - Hypertension, continue hydralazine as needed for systolic blood pressure above 170 -Tobacco dependence, cessation is strongly advised. Further recommendations based on clinical course. End of care discussed with Dr. Madrid. Subjective 24 Hr Interval Summary Free Text/Dictation Patient is sitting up in the chair, complaining of cough denies any chest pain or shortness of breath. Continue Robitussin, will add Mucomyst as patient complained of thick secretions. Discussed with staff-no new events reported last night Constitutional: requiring O2 ENT: no complaints Respiratory: cough Cardiovascular: no complaints Gastrointestinal: no complaints Genitourinary: no complaints Musculoskeletal: no complaints Exam/Review of Systems Vital Signs Vitals Vital Signs Date Time Temp Pulse Resp B/P Pulse Ox O2 Delivery O2 Flow Rate FiO2 08/22/16 07:27 98.8 74 18 163/91 91 08/22/16 02:00 Room Air 08/20/16 22:03 2.0 Intake and Output 08/21/16 08/21/16 08/22/16 15:00 23:00 07:00 Intake Total 1040 ml 450 ml Balance 1040 ml 450 ml Exam Constitutional: alert, well developed Respiratory: diminished breath sounds Cardiovascular: nl pulses, regular rate and rhythm Gastrointestinal: non-tender, soft Musculoskeletal: nl extremities to inspection Extremities: normal pulses Neurological: nl mental status, nl speech Results Result Diagram: 08/21/16 0750 08/21/16 0750 Medications Medications Current Medications Acetaminophen/ Hydrocodone Bitart ([place] (5/325)) 1 tab Q4H PRN PO FOR PAIN Last administered on 08/21/16 18:36; Admin Dose 1 TAB; Start 08/20/16 at 21:00 Amlodipine Besylate (Norvasc) 10 mg DAILY PO Last administered on 08/22/16 09: 10; Admin Dose 10 MG; Start 08/20/16 at 21:00 Zolpidem Tartrate (Ambien) 5 mg HS PRN PO INSOMNIA Last administered on 21:26; Admin Dose 5 MG; Start 08/20/16 at 21:00 Acetaminophen (Tylenol Tab) 650 mg Q4H PRN PO PAIN AND OR ELEVATED TEMP Last administered on 08/21/16 23:00; Admin Dose 650 MG; Start 08/20/16 at 21:00 Ondansetron HCl 4 mg 4 mg Q6H PRN IV NAUSEA AND/OR VOMITING; Start 08/20/16 at 21:00 Ceftriaxone Sodium 50 ml @ 100 mls/hr Q24H IVPB Last administered on 23:03; Admin Dose 100 MLS/HR; Start 08/21/16 at 00:00 Levofloxacin/ Dextrose (Levaquin 500mg/ D5W 100 ml (Pmx)) 100 ml @ 100 mls/hr Q24H IVPB Last administered on 08/22/16 00:59; Admin Dose 100 MLS/HR; Start at 01:00 Morphine Sulfate (morphine) 2 mg Q3H PRN IV FOR SEVERE PAIN Last administered on 08/22/16 05:42; Admin Dose 2 MG; Start 08/21/16 at 03:30 Apixaban (Eliquis) 10 mg BID PO Last administered on 08/22/16 09:10; Admin Dose 10 MG; Start 08/21/16 at 21:00; Stop 08/28/16 at 09:01 Apixaban (Eliquis) 5 mg BID PO ; Start 08/28/16 at 21:00 Docusate Sodium (Colace) 100 mg BID PO Last administered on 08/22/16 09:10; Admin Dose 100 MG; Start 08/21/16 at 15:00 Bisacodyl (Dulcolax) 5 mg DAILY PRN PO CONSTIPATION Last administered on 09:13; Admin Dose 5 MG; Start 08/21/16 at 15:00 Guaifenesin/ Dextromethorphan (Robitussin Dm Liquid Cup) 10 ml Q6 PRN PO COUGH Last administered on 08/22/16 06:37; Admin Dose 10 ML; Start 08/21/16 at 22:30 CRESENCIO DENISE Aug 22, 2016 12:12
--- NOTE | 2016-08-22 12:53 | CONS ---
Date/Time of Note Date/Time of Note DATE: 08/22/16 TIME: 12:52 Consult Date/Type/Reason Admit Date/Time Aug 20, 2016 at 15:38 Initial Consult Date 08/21/16 Type of Consultation: Pulmonary Subjective Patient comfortable this morning no new events. Still has a productive cough and has difficulty clearing his secretions. Objective Vital Signs Date Time Temp Pulse Resp B/P Pulse Ox O2 Delivery O2 Flow Rate FiO2 08/22/16 07:27 98.8 74 18 163/91 91 08/22/16 02:00 Room Air 08/20/16 22:03 2.0 Intake and Output 08/21/16 08/21/16 08/22/16 15:00 23:00 07:00 Intake Total 1040 ml 450 ml Balance 1040 ml 450 ml Exam GENERAL: VITAL SIGNS: per chart NECK: Supple. No JVD or lymphadenopathy. CARDIAC EXAM: S1, S2. No added sounds or murmurs. CHEST: clear bilaterally, No added sounds, rales or wheezes ABDOMEN: Soft, nontender. No guarding or rebound. EXTREMITIES: No cyanosis, clubbing or edema. NEUROLOGIC: Generalized weakness. No focal deficits. Results/Medications Result Diagram: 08/21/16 0750 08/21/16 0750 Medications Current Medications Acetaminophen/ Hydrocodone Bitart ([place] (5/325)) 1 tab Q4H PRN PO FOR PAIN Last administered on 08/21/16 18:36; Admin Dose 1 TAB; Start 08/20/16 at 21:00 Amlodipine Besylate (Norvasc) 10 mg DAILY PO Last administered on 08/22/16 09: 10; Admin Dose 10 MG; Start 08/20/16 at 21:00 Zolpidem Tartrate (Ambien) 5 mg HS PRN PO INSOMNIA Last administered on 21:26; Admin Dose 5 MG; Start 08/20/16 at 21:00 Acetaminophen (Tylenol Tab) 650 mg Q4H PRN PO PAIN AND OR ELEVATED TEMP Last administered on 08/21/16 23:00; Admin Dose 650 MG; Start 08/20/16 at 21:00 Ondansetron HCl 4 mg 4 mg Q6H PRN IV NAUSEA AND/OR VOMITING; Start 08/20/16 at 21:00 Ceftriaxone Sodium 50 ml @ 100 mls/hr Q24H IVPB Last administered on 23:03; Admin Dose 100 MLS/HR; Start 08/21/16 at 00:00 Levofloxacin/ Dextrose (Levaquin 500mg/ D5W 100 ml (Pmx)) 100 ml @ 100 mls/hr Q24H IVPB Last administered on 08/22/16 00:59; Admin Dose 100 MLS/HR; Start at 01:00 Morphine Sulfate (morphine) 2 mg Q3H PRN IV FOR SEVERE PAIN Last administered on 08/22/16 05:42; Admin Dose 2 MG; Start 08/21/16 at 03:30 Apixaban (Eliquis) 10 mg BID PO Last administered on 08/22/16 09:10; Admin Dose 10 MG; Start 08/21/16 at 21:00; Stop 08/28/16 at 09:01 Apixaban (Eliquis) 5 mg BID PO ; Start 08/28/16 at 21:00 Docusate Sodium (Colace) 100 mg BID PO Last administered on 08/22/16 09:10; Admin Dose 100 MG; Start 08/21/16 at 15:00 Bisacodyl (Dulcolax) 5 mg DAILY PRN PO CONSTIPATION Last administered on 09:13; Admin Dose 5 MG; Start 08/21/16 at 15:00 Guaifenesin/ Dextromethorphan (Robitussin Dm Liquid Cup) 10 ml Q6 PRN PO COUGH Last administered on 08/22/16 06:37; Admin Dose 10 ML; Start 08/21/16 at 22:30 Guaifenesin (Mucinex) 600 mg BID PO ; Start 08/22/16 at 14:00 Nicotine (Nicoderm 14 Mg/ 24hr) 1 patch DAILY TRANSDERM ; Start 08/23/16 at 09: 00 Assessment/Plan Chief Complaint/Hosp Course Assessment 1. Recent PE DVT, likely noncompliance 2. Community acquired pneumonia 3 Questionable psychiatric disorder 4. Probable COPD with ongoing tobacco use. Plan. 1. Continue anticoagulation with Eliquis 2. Continue antibiotics 3. Bronchodilators 4. Encourage smoking cessation 5. Encourage ambulation Problems: BROOKLYN DUFFY [facility], [facility] Aug 22, 2016 12:53
[2016-08-22 13:22] LABS: ADD SCAN DIFF NO
[2016-08-22 13:27] VITALS: BP 147/68; RESP 18
[2016-08-22 13:30] LABS: BASOPHILS % 0.3 % (0.0-2.0); EOSINOPHILS # 0.2 10^3/ul (0.0-0.5); EOSINOPHILS % 1.7 % (0.0-7.0); HEMATOCRIT 44.5 % (42.0-52.0); HEMOGLOBIN 13.7 g/dl (14.0-18.0); LYMPHOCYTES # 1.7 10^3/ul (0.8-2.9); LYMPHOCYTES % 14.5 % (15.0-51.0); MEAN CORPUSCULAR HEMOGLOBIN 21.9 pg (29.0-33.0); MEAN CORPUSCULAR HGB CONC 30.8 g/dl (32.0-37.0); MONOCYTE # 1.3 10^3/ul (0.3-0.9); NEUTROPHIL # 8.6 10^3/ul (1.6-7.5); NEUTROPHILS % 71.7 % (39.0-77.0); PLATELET COUNT 344 10^3/UL (140-415); RED BLOOD COUNT 6.27 10^6/ul (4.70-6.10); RED CELL DISTRIBUTION WIDTH 15.8 % (11.5-14.5)
[2016-08-22 13:48] LABS: CALCIUM 9.6 mg/dl (8.4-10.2); CREATININE 0.99 mg/dl (0.61-1.24); POTASSIUM 3.5 mmol/L (3.5-5.1)
[2016-08-22] MEDS: GUAIFENESIN LA 600 MG TABSR PO SCH ×2 (14:22→23:14)
[2016-08-22 19:43] VITALS: BP 169/83; RESP 20
[2016-08-22] MEDS: CEFTRIAXONE 1 GM/50 ML (PMX) 50 ML IVPB SCH (23:13)
[2016-08-22] MEDS: HYDROCODONE/APAP (5/325) TAB PO PRN (23:14)
[2016-08-23] MEDS: LEVOFLOXACIN 500MG/D5W (PMX) 100 ML IVPB SCH (01:20)
[2016-08-23 02:49] VITALS: BP 139/76; RESP 20
[2016-08-23 05:20] LABS: ADD SCAN DIFF NO
[2016-08-23 05:26] LABS: BASOPHILS % 0.2 % (0.0-2.0); EOSINOPHILS # 0.3 10^3/ul (0.0-0.5); EOSINOPHILS % 3.2 % (0.0-7.0); HEMATOCRIT 42.3 % (42.0-52.0); HEMOGLOBIN 13.3 g/dl (14.0-18.0); LYMPHOCYTES # 1.7 10^3/ul (0.8-2.9); LYMPHOCYTES % 19.2 % (15.0-51.0); MEAN CORPUSCULAR HGB CONC 31.4 g/dl (32.0-37.0); MEAN PLATELET VOLUME 9.4 fl (7.4-10.4); NEUTROPHIL # 5.8 10^3/ul (1.6-7.5); NEUTROPHILS % 65.8 % (39.0-77.0); PLATELET COUNT 330 10^3/UL (140-415); RED BLOOD COUNT 6.04 10^6/ul (4.70-6.10); RED CELL DISTRIBUTION WIDTH 15.1 % (11.5-14.5); WHITE BLOOD COUNT 8.8 10^3/ul (4.8-10.8)
[2016-08-23 05:43] LABS: CREATININE 0.96 mg/dl (0.61-1.24); POTASSIUM 3.3 mmol/L (3.5-5.1)
[2016-08-23 07:33] VITALS: BP 163/87; RESP 18
[2016-08-23] MEDS: DOCUSATE SODIUM 100 MG CAP PO SCH ×2 (08:30→21:29)
[2016-08-23] MEDS: APIXABAN 5 MG TABLET PO SCH ×2 (08:31→21:29)
[2016-08-23] MEDS: GUAIFENESIN LA 600 MG TABSR PO SCH ×2 (08:31→21:29)
[2016-08-23] MEDS: AMLODIPINE 10 MG TAB PO SCH (08:32)
[2016-08-23] MEDS: NICOTINE (14 MG/24 HR) PATCH TRANSDERM SCH (08:34)
[2016-08-23] MEDS: GUAIFENESIN/DM 5ML CUP PO PRN (11:10)
[2016-08-23 14:08] VITALS: BP 138/78; RESP 18
--- NOTE | 2016-08-23 15:11 | CONS ---
Date/Time of Note Date/Time of Note DATE: 08/23/16 TIME: 15:10 Consult Date/Type/Reason Admit Date/Time Aug 20, 2016 at 15:38 Initial Consult Date 08/21/16 Type of Consultation: Pulmonary Subjective Patient remains stable this morning less cough and congestion Objective Vital Signs Date Time Temp Pulse Resp B/P Pulse Ox O2 Delivery O2 Flow Rate FiO2 08/23/16 14:08 98.8 67 18 138/78 96 08/22/16 02:00 Room Air 08/20/16 22:03 2.0 Intake and Output 08/22/16 08/22/16 08/23/16 14:59 22:59 06:59 Intake Total 1160 ml 1130 ml Output Total 200 ml 650 ml Balance 960 ml 480 ml Results/Medications Result Diagram: 08/23/16 0451 08/23/16 0451 Results 24 hrs Laboratory Tests Test 08/23/16 04:51 White Blood Count 8.8 # Red Blood Count 6.04 Hemoglobin 13.3 L Hematocrit 42.3 Mean Corpuscular Volume 70.0 L Mean Corpuscular Hemoglobin 22.0 L Mean Corpuscular Hemoglobin Concent 31.4 L Red Cell Distribution Width 15.1 H Platelet Count 330 Mean Platelet Volume 9.4 Neutrophils % 65.8 Lymphocytes % 19.2 Monocytes % 11.0 Eosinophils % 3.2 Basophils % 0.2 Nucleated Red Blood Cells % 0.0 Neutrophils # 5.8 Lymphocytes # 1.7 Monocytes # 1.0 H Eosinophils # 0.3 Basophils # 0.0 Nucleated Red Blood Cells # 0.0 Sodium Level 142 Potassium Level 3.3 L Chloride Level 100 Carbon Dioxide Level 27 Anion Gap 18 H Blood Urea Nitrogen 12 Creatinine 0.96 Glucose Level 97 Calcium Level 9.0 Medications Current Medications Acetaminophen/ Hydrocodone Bitart ([place] (5/325)) 1 tab Q4H PRN PO FOR PAIN Last administered on 08/22/16 23:14; Admin Dose 1 TAB; Start 08/20/16 at 21:00 Amlodipine Besylate (Norvasc) 10 mg DAILY PO Last administered on 08/23/16 08: 32; Admin Dose 10 MG; Start 08/20/16 at 21:00 Zolpidem Tartrate (Ambien) 5 mg HS PRN PO INSOMNIA Last administered on 21:26; Admin Dose 5 MG; Start 08/20/16 at 21:00 Acetaminophen (Tylenol Tab) 650 mg Q4H PRN PO PAIN AND OR ELEVATED TEMP Last administered on 08/21/16 23:00; Admin Dose 650 MG; Start 08/20/16 at 21:00 Ondansetron HCl 4 mg 4 mg Q6H PRN IV NAUSEA AND/OR VOMITING; Start 08/20/16 at 21:00 Ceftriaxone Sodium 50 ml @ 100 mls/hr Q24H IVPB Last administered on 23:13; Admin Dose 100 MLS/HR; Start 08/21/16 at 00:00 Levofloxacin/ Dextrose (Levaquin 500mg/ D5W 100 ml (Pmx)) 100 ml @ 100 mls/hr Q24H IVPB Last administered on 08/23/16 01:20; Admin Dose 100 MLS/HR; Start at 01:00 Morphine Sulfate (morphine) 2 mg Q3H PRN IV FOR SEVERE PAIN Last administered on 08/22/16 18:56; Admin Dose 2 MG; Start 08/21/16 at 03:30 Apixaban (Eliquis) 10 mg BID PO Last administered on 08/23/16 08:31; Admin Dose 10 MG; Start 08/21/16 at 21:00; Stop 08/28/16 at 09:01 Apixaban (Eliquis) 5 mg BID PO ; Start 08/28/16 at 21:00 Docusate Sodium (Colace) 100 mg BID PO Last administered on 08/23/16 08:30; Admin Dose 100 MG; Start 08/21/16 at 15:00 Bisacodyl (Dulcolax) 5 mg DAILY PRN PO CONSTIPATION Last administered on 09:13; Admin Dose 5 MG; Start 08/21/16 at 15:00 Guaifenesin/ Dextromethorphan (Robitussin Dm Liquid Cup) 10 ml Q6 PRN PO COUGH Last administered on 08/23/16 11:10; Admin Dose 10 ML; Start 08/21/16 at 22:30 Guaifenesin (Mucinex) 600 mg BID PO Last administered on 08/23/16 08:31; Admin Dose 600 MG; Start 08/22/16 at 14:00 Nicotine (Nicoderm 14 Mg/ 24hr) 1 patch DAILY TRANSDERM Last administered on t 08:34; Admin Dose 1 PATCH; Start 08/23/16 at 09:00 Assessment/Plan Chief Complaint/Hosp Course Assessment 1. Recent PE DVT, likely noncompliance 2. Community acquired pneumonia 3 Questionable psychiatric disorder 4. Probable COPD with ongoing tobacco use. Plan. 1. Continue anticoagulation with Eliquis 2. Continue antibiotics 3. Bronchodilators 4. Encourage smoking cessation 5. Encourage ambulation Discharge planning okay from pulmonary standpoint discharge with p.o. antibiotics and Eliquis Problems: [facility]OOKLYN DUFFY [facility], [facility] Aug 23, 2016 15:11
[2016-08-23] MEDS: HYDROCODONE/APAP (5/325) TAB PO PRN ×2 (16:09→23:53)
--- NOTE | 2016-08-23 18:17 | PN ---
Date/Time of Note Date/Time of Note DATE: 08/23/16 TIME: 18:17 Assessment/Plan VTE Prophylaxis VTE Prophylaxis Intervention: SCD's Lines/Catheters IV [facility] Saline Lock Urinary Cath still in place: No Assessment/Plan Chief Complaint/Hosp Course Patient's continues to complain of productive cough however stated that he feels better, denies fever. Assessment/Plan - Pulmonary embolism, continue Lovenox. Dr. Lopez is following patient in pulmonology consultation. - Pneumonia, continue broad-spectrum antibiotics. - Hypertension, continue hydralazine as needed for systolic blood pressure above 170 -Tobacco dependence, cessation is strongly advised. Further recommendations based on clinical course. Plan of care discussed with Dr. Madrid. Problems: Exam/Review of Systems Vital Signs Vitals Vital Signs Date Time Temp Pulse Resp B/P Pulse Ox O2 Delivery O2 Flow Rate FiO2 08/23/16 14:08 98.8 67 18 138/78 96 08/22/16 02:00 Room Air 08/20/16 22:03 2.0 Intake and Output 08/22/16 08/22/16 08/23/16 15:00 23:00 07:00 Intake Total 1160 ml 1130 ml Output Total 200 ml 650 ml Balance 960 ml 480 ml Exam Constitutional: alert, oriented Head: normocephalic Neck: supple Respiratory: diminished breath sounds Cardiovascular: nl pulses Gastrointestinal: non-tender, soft Extremities: normal pulses Neurological: nl mental status Results Result Diagram: 08/23/16 0451 08/23/16 0451 Results 24 hrs Laboratory Tests Test 08/23/16 04:51 White Blood Count 8.8 # Red Blood Count 6.04 Hemoglobin 13.3 L Hematocrit 42.3 Mean Corpuscular Volume 70.0 L Mean Corpuscular Hemoglobin 22.0 L Mean Corpuscular Hemoglobin Concent 31.4 L Red Cell Distribution Width 15.1 H Platelet Count 330 Mean Platelet Volume 9.4 Neutrophils % 65.8 Lymphocytes % 19.2 Monocytes % 11.0 Eosinophils % 3.2 Basophils % 0.2 Nucleated Red Blood Cells % 0.0 Neutrophils # 5.8 Lymphocytes # 1.7 Monocytes # 1.0 H Eosinophils # 0.3 Basophils # 0.0 Nucleated Red Blood Cells # 0.0 Sodium Level 142 Potassium Level 3.3 L Chloride Level 100 Carbon Dioxide Level 27 Anion Gap 18 H Blood Urea Nitrogen 12 Creatinine 0.96 Glucose Level 97 Calcium Level 9.0 Medications Medications Current Medications Acetaminophen/ Hydrocodone Bitart ([place] (5/325)) 1 tab Q4H PRN PO FOR PAIN Last administered on 08/23/16 16:09; Admin Dose 1 TAB; Start 08/20/16 at 21:00 Amlodipine Besylate (Norvasc) 10 mg DAILY PO Last administered on 08/23/16 08: 32; Admin Dose 10 MG; Start 08/20/16 at 21:00 Zolpidem Tartrate (Ambien) 5 mg HS PRN PO INSOMNIA Last administered on 21:26; Admin Dose 5 MG; Start 08/20/16 at 21:00 Acetaminophen (Tylenol Tab) 650 mg Q4H PRN PO PAIN AND OR ELEVATED TEMP Last administered on 08/21/16 23:00; Admin Dose 650 MG; Start 08/20/16 at 21:00 Ondansetron HCl 4 mg 4 mg Q6H PRN IV NAUSEA AND/OR VOMITING; Start 08/20/16 at 21:00 Ceftriaxone Sodium 50 ml @ 100 mls/hr Q24H IVPB Last administered on 23:13; Admin Dose 100 MLS/HR; Start 08/21/16 at 00:00 Levofloxacin/ Dextrose (Levaquin 500mg/ D5W 100 ml (Pmx)) 100 ml @ 100 mls/hr Q24H IVPB Last administered on 08/23/16 01:20; Admin Dose 100 MLS/HR; Start at 01:00 Morphine Sulfate (morphine) 2 mg Q3H PRN IV FOR SEVERE PAIN Last administered on 08/22/16 18:56; Admin Dose 2 MG; Start 08/21/16 at 03:30 Apixaban (Eliquis) 10 mg BID PO Last administered on 08/23/16 08:31; Admin Dose 10 MG; Start 08/21/16 at 21:00; Stop 08/28/16 at 09:01 Apixaban (Eliquis) 5 mg BID PO ; Start 08/28/16 at 21:00 Docusate Sodium (Colace) 100 mg BID PO Last administered on 08/23/16 08:30; Admin Dose 100 MG; Start 08/21/16 at 15:00 Bisacodyl (Dulcolax) 5 mg DAILY PRN PO CONSTIPATION Last administered on 09:13; Admin Dose 5 MG; Start 08/21/16 at 15:00 Guaifenesin/ Dextromethorphan (Robitussin Dm Liquid Cup) 10 ml Q6 PRN PO COUGH Last administered on 08/23/16 11:10; Admin Dose 10 ML; Start 08/21/16 at 22:30 Guaifenesin (Mucinex) 600 mg BID PO Last administered on 08/23/16 08:31; Admin Dose 600 MG; Start 08/22/16 at 14:00 Nicotine (Nicoderm 14 Mg/ 24hr) 1 patch DAILY TRANSDERM Last administered on 08:34; Admin Dose 1 PATCH; Start 08/23/16 at 09:00 GUNJAN PETTY Aug 23, 2016 18:17
[2016-08-23 20:18] VITALS: BP 170/91; RESP 18
[2016-08-23] MEDS: ZOLPIDEM 5 MG TAB PO PRN (23:53)
[2016-08-23] MEDS: CEFTRIAXONE 1 GM/50 ML (PMX) 50 ML IVPB SCH (23:54)
[2016-08-24] MEDS: LEVOFLOXACIN 500MG/D5W (PMX) 100 ML IVPB SCH (00:51)
[2016-08-24 02:35] VITALS: BP 148/94; RESP 18
[2016-08-24] MEDS: GUAIFENESIN/DM 5ML CUP PO PRN (04:46)
[2016-08-24 07:27] VITALS: BP 161/94; RESP 20
[2016-08-24] MEDS: HYDROCODONE/APAP (5/325) TAB PO PRN (08:15)
[2016-08-24] MEDS: APIXABAN 5 MG TABLET PO SCH (08:16)
[2016-08-24] MEDS: DOCUSATE SODIUM 100 MG CAP PO SCH (08:16)
[2016-08-24] MEDS: GUAIFENESIN LA 600 MG TABSR PO SCH (08:18)
[2016-08-24] MEDS: AMLODIPINE 10 MG TAB PO SCH (08:18)
[2016-08-24] MEDS: NICOTINE (14 MG/24 HR) PATCH TRANSDERM SCH (08:19)
--- NOTE | 2016-08-24 12:24 | CONS ---
Date/Time of Note Date/Time of Note DATE: 08/24/16 TIME: 12:23 Consult Date/Type/Reason Admit Date/Time Aug 20, 2016 at 15:38 Initial Consult Date 08/21/16 Type of Consultation: Pulmonary Subjective Patient comfortable this morning no new events.Breathing has improved. Objective Vital Signs Date Time Temp Pulse Resp B/P Pulse Ox O2 Delivery O2 Flow Rate FiO2 08/24/16 07:27 98.6 61 20 161/94 95 08/22/16 02:00 Room Air 08/20/16 22:03 2.0 Intake and Output 08/23/16 08/23/16 08/24/16 15:00 23:00 07:00 Intake Total 1080 ml 150 ml Balance 1080 ml 150 ml Exam GENERAL: Well-nourished well-developed gentleman comfortable at rest no acute distress VITAL SIGNS: per chart NECK: Supple. No JVD or lymphadenopathy. CARDIAC EXAM: S1, S2. No added sounds or murmurs. CHEST: clear bilaterally, No added sounds, rales or wheezes ABDOMEN: Soft, nontender. No guarding or rebound. EXTREMITIES: No cyanosis, clubbing or edema. NEUROLOGIC: Generalized weakness. No focal deficits. Results/Medications Result Diagram: 08/23/16 04508/23/16 045 Medications Current Medications Acetaminophen/ Hydrocodone Bitart ([place] (5/325)) 1 tab Q4H PRN PO FOR PAIN Last administered on 08/24/16 08:15; Admin Dose 1 TAB; Start 08/20/16 at 21:00 Amlodipine Besylate (Norvasc) 10 mg DAILY PO Last administered on 08/24/16 08: 18; Admin Dose 10 MG; Start 08/20/16 at 21:00 Zolpidem Tartrate (Ambien) 5 mg HS PRN PO INSOMNIA Last administered on 23:53; Admin Dose 5 MG; Start 08/20/16 at 21:00 Acetaminophen (Tylenol Tab) 650 mg Q4H PRN PO PAIN AND OR ELEVATED TEMP Last administered on 08/21/16 23:00; Admin Dose 650 MG; Start 08/20/16 at 21:00 Ondansetron HCl 4 mg 4 mg Q6H PRN IV NAUSEA AND/OR VOMITING; Start 08/20/16 at 21:00 Ceftriaxone Sodium 50 ml @ 100 mls/hr Q24H IVPB Last administered on 23:54; Admin Dose 100 MLS/HR; Start 08/21/16 at 00:00 Levofloxacin/ Dextrose (Levaquin 500mg/ D5W 100 ml (Pmx)) 100 ml @ 100 mls/hr Q24H IVPB Last administered on 08/24/16 00:51; Admin Dose 100 MLS/HR; Start at 01:00 Morphine Sulfate (morphine) 2 mg Q3H PRN IV FOR SEVERE PAIN Last administered on 08/22/16 18:56; Admin Dose 2 MG; Start 08/21/16 at 03:30 Apixaban (Eliquis) 10 mg BID PO Last administered on 08/24/16 08:16; Admin Dose 10 MG; Start 08/21/16 at 21:00; Stop 08/28/16 at 09:01 Apixaban (Eliquis) 5 mg BID PO ; Start 08/28/16 at 21:00 Docusate Sodium (Colace) 100 mg BID PO Last administered on 08/24/16 08:16; Admin Dose 100 MG; Start 08/21/16 at 15:00 Bisacodyl (Dulcolax) 5 mg DAILY PRN PO CONSTIPATION Last administered on 09:13; Admin Dose 5 MG; Start 08/21/16 at 15:00 Guaifenesin/ Dextromethorphan (Robitussin Dm Liquid Cup) 10 ml Q6 PRN PO COUGH Last administered on 08/24/16 04:46; Admin Dose 10 ML; Start 08/21/16 at 22:30 Guaifenesin (Mucinex) 600 mg BID PO Last administered on 08/24/16 08:18; Admin Dose 600 MG; Start 08/22/16 at 14:00 Nicotine (Nicoderm 14 Mg/ 24hr) 1 patch DAILY TRANSDERM Last administered on 08:19; Admin Dose 1 PATCH; Start 08/23/16 at 09:00 Assessment/Plan Chief Complaint/Hosp Course Assessment 1. Recent PE DVT, likely noncompliance 2. Community acquired pneumonia 3 Questionable psychiatric disorder 4. Probable COPD with ongoing tobacco use. Plan. 1. Continue anticoagulation with Eliquis 2. Continue antibiotics 3. Bronchodilators 4. Encourage smoking cessation 5. Encourage ambulation Discharge planning okay from pulmonary standpoint discharge with p.o. antibiotics and Eliquis Problems: BROOKLYN DUFFY MD, [facility] Aug 24, 2016 12:24
[2016-08-24] MEDS ORDERED: APIX5TAB PO (14:26)
[2016-08-24] MEDS ORDERED: LEVO500T72 PO (14:26)
[2016-08-24] MEDS ORDERED: AMLO-147 PO (14:26)
[2016-08-24] MEDS ORDERED: Nicotine (14 Mg/24 Hr) TRANSDERM (14:26)
[2016-08-24 15:02] VITALS: BP 176/92; RESP 18
--- NOTE | 2016-08-24 19:14 | DS ---
Date/Time of Note Date/Time of Note DATE: 08/24/16 TIME: 19:11 Discharge Summary Admission/Discharge Info Admit Date/Time Aug 20, 2016 at 15:38 Discharge Date/Time Aug 24, 2016 at 15:50 Discharge Diagnosis - Pulmonary embolism - Pneumonia - Hypertension -Tobacco dependence Patient Condition: Good Hx of Present Illness Patient is a 56-year-old -Swiss male with history of pulmonary embolism and hypertension. Patient was diagnosed with pulmonary embolism in June 2016 and been taking Lovenox she stopped taking last month. Patient presented to the emergency room last night with complaints of shortness of breath. He underwent CT scan and was diagnosed with pneumonia, bilateral pulmonary emboli as well as cardiomegaly. Patient left AGAINST MEDICAL ADVICE at 1:30 in the morning. Patient came back in the emergency room with complaints of bilateral thoracic pain and shortness of breath. Patient is currently lethargic but easily arousable most of the history was obtained from medical records talking to patient talking to patient's girlfriend Marie at the bedside. Patient denies any chest pain denies any nausea vomiting denies any bilateral lower extremity swelling denies fevers chills. Hospital Course - Pulmonary embolism, continue Lovenox. Dr. Lopez is following patient in pulmonology consultation. Patient switched to Eliquis. Patient's condition improved and patient discharged on Eliquis 5 mg twice daily and Levaquin for completion of treatment of pneumonia. Patient was also given prescription for nicotine patch since tobacco cessation is strongly advised. - Pneumonia, continue broad-spectrum antibiotics. - Hypertension, continue hydralazine as needed for systolic blood pressure above 170 -Tobacco dependence, cessation is strongly advised. Home Meds Active Scripts Levofloxacin* (Levaquin*) 500 Mg Tablet, 500 MG PO DAILY for 5 Days, TAB Prov:GUNJAN PETTY 08/24/16 [Nicotine (14 Mg/24 Hr)] 1 PATCH PATCH No Conflict Check, 1 PATCH TRANSDERM DAILY for 30 Days Prov:GUNJAN PETTY 08/24/16 Amlodipine Besylate* (Amlodipine Besylate*) 10 Mg Tablet, 10 MG PO DAILY for 30 Days, TAB Prov:GUNJAN PETTY 08/24/16 Apixaban* (Eliquis*) 5 Mg Tablet, 5 MG PO BID for 30 Days, TAB Prov:GUNJAN PETTY 08/24/16 Follow-up Plan Follow-up with PMD in 2 weeks, follow-up with Dr. Steven, in pulmonology consultation into 3 weeks Primary Care Provider Not On Staff Doctor Time spent on discharge: > 30 minutes GUNJAN PETTY Aug 24, 2016 19:13
[2016-08-28] MEDS ORDERED: APIXABAN 5 MG TABLET PO SCH (21:00)
== END 2016-08-24 15:50 | disposition home or self-care (01) | DRG 175 ==
LOC: E/R 14:20 → MS2 15:38
PROVIDERS: ADMIT Internal Medicine; ATTEND Internal Medicine
DX: I26.99 Other pulmonary embolism without acute cor pulmonale (principal); J18.9 Pneumonia, unspecified organism; I82.409 Acute embolism and thrombosis of unspecified deep veins of unspecified lower extremity; I51.7 Cardiomegaly; I10 Essential (primary) hypertension; J44.9 Chronic obstructive pulmonary disease, unspecified; F17.200 Nicotine dependence, unspecified, uncomplicated; Y95 Nosocomial condition; Z79.02 Long term (current) use of antithrombotics/antiplatelets
CPT/HCPCS: 36415; 71010; 71020; 80048; 80053; 81001; 82550; 82553; 82803; 83880; 84484; 85025; 85610; 85730; 87040; 87086; 93005; 94664; 96365; 96367; 96372; 96375; J0456; J0696; J0744; J1170; J1956; J2060; J2270; J2405

== ENCOUNTER 2016-10-22 16:08 | Inpatient (IN) | payer OTHER ==
[~2016-10-22] VITALS: Ht 170.2 cm; Wt 75.0 kg
[~2016-10-22 16:08] MED LIST: AMLO-147 PO; APIX5TAB PO; LEVO500T72 PO; Nicotine (14 Mg/24 Hr) TRANSDERM
[2016-10-22] MEDS ORDERED: ASPIRIN 81 MG TAB PO STA (16:49)
[2016-10-22] MEDS ORDERED: HYDROmorphONE 1 MG/ML SYG IV STA (16:49)
[2016-10-22] MEDS ORDERED: NITROGLYCERIN 2% 1 GM OINT PKT TD STA (16:49)
[2016-10-22] MEDS ORDERED: ONDANSETRON 4 MG INJ IV STA (16:49)
[2016-10-22] MEDS ORDERED: NITROGLYCERIN (SL) 0.4 MG TAB SL PRN (17:00)
--- NOTE | 2016-10-22 17:18 | RADRPT ---
PROCEDURE: Chest x-ray CLINICAL INDICATION: Chest pain TECHNIQUE: Chest single view COMPARISON: 08/21/2016 FINDINGS: There is stable mild cardiomegaly. The pulmonary vessels are normal in caliber. There is interval c learing of left lower lobe pneumonia and left pleural effusion. Lungs clear. The costophrenic angles are sharp. The visualized bony thorax is unremarkable. IMPRESSION: 1. Stable mild cardiomegaly. 2. Interval clearing of left lower lobe pneumonia and small left pleural effusion 3. No new infiltrates RPTAT: HH .Clark Zeng MD, Date Time Electronically viewed and signed by .Clark Zeng MD, on 10/22/2016 17:18 .W/
[2016-10-22 17:25] LABS: BASOPHILS % 0.2 % (0.0-2.0); EOSINOPHILS # 0.1 10^3/ul (0.0-0.5); EOSINOPHILS % 0.7 % (0.0-7.0); HEMATOCRIT 49.6 % (42.0-52.0); HEMOGLOBIN 15.1 g/dl (14.0-18.0); LYMPHOCYTES # 1.9 10^3/ul (0.8-2.9); MEAN CORPUSCULAR HEMOGLOBIN 21.4 pg (29.0-33.0); MEAN CORPUSCULAR HGB CONC 30.4 g/dl (32.0-37.0); MEAN CORPUSCULAR VOLUME 70.2 fl (82.0-101.0); MEAN PLATELET VOLUME 9.4 fl (7.4-10.4); MONOCYTE # 1.2 10^3/ul (0.3-0.9); MONOCYTES % 9.5 % (0.0-11.0); NEUTROPHIL # 9.2 10^3/ul (1.6-7.5); NEUTROPHILS % 73.9 % (39.0-77.0); PLATELET COUNT 244 10^3/UL (140-415); RED BLOOD COUNT 7.07 10^6/ul (4.70-6.10); RED CELL DISTRIBUTION WIDTH 17.2 % (11.5-14.5); WHITE BLOOD COUNT 12.5 10^3/ul (4.8-10.8)
[2016-10-22] MEDS ORDERED: ONDANSETRON 4 MG INJ IV PRN (17:30)
[2016-10-22] MEDS ORDERED: ACETAMINOPHEN 325 MG TAB PO PRN ×2 (17:30→20:00)
[2016-10-22 17:48] LABS: ANION GAP 18 (8-16); BLOOD UREA NITROGEN 13 mg/dl (7-20); CALCIUM 10.2 mg/dl (8.4-10.2); CARBON DIOXIDE 27 mmol/L (21-31); CHLORIDE 98 mmol/L (97-110); CREATININE 1.38 mg/dl (0.61-1.24); GLUCOSE 117 mg/dl (70-220); POTASSIUM 3.7 mmol/L (3.5-5.1); SODIUM 139 mmol/L (135-144)
--- NOTE | 2016-10-22 18:03 | ERA ---
ER Documentation Chief Complaint Date/Time DATE: 10/22/16 TIME: 18:01 Chief Complaint sob, chest pain and generalized bobyache x 5 days HPI Patient is a 56-year-old male with hypertension and previous pulmonary embolism who presents with chest pain and shortness of breath. He says that he is right- sided chest pain which started 2-3 days ago. He said the pain got worse. It has been sharp and constant. The patient has no treatment as of yet. Upon review of old medical records the patient has had 2 visits here prior. He does not currently have a primary doctor. ROS All systems reviewed and are negative except as per history of present illness. Medications Home Meds Discontinued Scripts Levofloxacin* (Levaquin*) 500 Mg Tablet, 500 MG PO DAILY for 5 Days, TAB Prov:GUNJAN PETTY 08/24/16 [Nicotine (14 Mg/24 Hr)] 1 PATCH PATCH No Conflict Check, 1 PATCH TRANSDERM DAILY for 30 Days Prov:GUNJAN PETTY 08/24/16 Amlodipine Besylate* (Amlodipine Besylate*) 10 Mg Tablet, 10 MG PO DAILY for 30 Days, TAB Prov:GUJNAN PETTY 08/24/16 Apixaban* (Eliquis*) 5 Mg Tablet, 5 MG PO BID for 30 Days, TAB Prov:GUNJAN PETTY 08/24/16 Allergies Allergies: Coded Allergies: No Known Allergy (Unverified , 10/22/16) PMhx/Soc History of Surgery: No (LEFT SHOULDER SX) Anesthesia Reaction: No Hx Neurological Disorder: Yes (NEUROPATHY) Hx Respiratory Disorders: Yes (PE) Hx Cardiac Disorders: Yes (HTN) Hx Psychiatric Problems: Yes (ANXIETY) Hx Miscellaneous Medical Probl: No Hx Alcohol Use: Yes (BEERS-3 TO 4 BOTTLES/DAY-) Hx Substance Use: Yes (MARIJUANA AND COCAINE) Hx Tobacco Use: Yes (1 PACK/DAY) Smoking Status: Current every day smoker FmHx Family History: No diabetes Physical Exam Vitals Vital Signs Date Time Temp Pulse Resp B/P Pulse Ox O2 Delivery O2 Flow Rate FiO2 10/22/16 17:38 77 18 128/65 99 Room Air 10/22/16 16:11 101.2 90 20 165/90 96 Physical Exam Const: Moderate distress secondary to pain Head: Atraumatic Eyes: Normal Conjunctiva ENT: Normal External Ears, Nose and Mouth. Neck: Full range of motion..~ No meningismus. Resp: Clear to auscultation bilaterally Cardio: Regular rate and rhythm, no murmurs Abd: Soft, non tender, non distended. Normal bowel sounds Skin: No petechiae or rashes Back: No midline or flank tenderness Ext: No cyanosis, or edema Neur: Awake and alert Psych: Normal Mood and Affect Result Diagram: 10/22/16170910/22/161709 Results 24 hrs Laboratory Tests Test 10/22/16 17:10 White Blood Count 12.510^3/ul Red Blood Count 7.0710^6/ul Hemoglobin 15.1g/dl Hematocrit 49.6% Mean Corpuscular Volume 70.2fl Mean Corpuscular Hemoglobin 21.4pg Mean Corpuscular Hemoglobin Concent 30.4g/dl Red Cell Distribution Width 17.2% Platelet Count 59474^3/UL Mean Platelet Volume 9.4fl Neutrophils % 73.9% Lymphocytes % 15.0% Monocytes % 9.5% Eosinophils % 0.7% Basophils % 0.2% Nucleated Red Blood Cells % 0.0/100WBC Neutrophils # 9.210^3/ul Lymphocytes # 1.910^3/ul Monocytes # 1.210^3/ul Eosinophils # 0.110^3/ul Basophils # 0.010^3/ul Nucleated Red Blood Cells # 0.010^3/ul Sodium Level 139mmol/L Potassium Level 3.7mmol/L Chloride Level 98mmol/L Carbon Dioxide Level 27mmol/L Anion Gap 18 Blood Urea Nitrogen 13mg/dl Creatinine 1.38mg/dl Glucose Level 117mg/dl Calcium Level 10.2mg/dl Troponin I Pending Current Medications Medications (Trade) Dose Ordered Sig/Richelle Route PRN Reason Start Time Stop Time Status Last Admin Dose Admin Aspirin (Aspirin) 162 mg ONCE STAT PO 10/22/16 16:49 10/22/16 16:51 DC 10/22/16 17:36 Nitroglycerin (Nitroglycerin 2% Oint) 1 inch ONCE STAT TD 10/22/16 16:49 10/22/16 16:51 DC 10/22/16 17:36 Nitroglycerin (Nitroglycerin (Sl Tab) 0.4 Mg) 1 tab Q5M UP TO 3 DOSES PRN SL CHEST PAIN 10/22/16 17:00 10/22/16 17:36 Hydromorphone HCl (Dilaudid) 1 mg ONCE STAT IV 10/22/16 16:49 10/22/16 16:51 DC 10/22/16 17:35 Ondansetron HCl (Zofran Inj) 4 mg ONCE STAT IV 10/22/16 16:49 10/22/16 16:51 DC 10/22/16 17:36 Ondansetron HCl (Zofran Inj) 4 mg ER BRIDGE PRN IV NAUSEA AND/OR VOMITING 10/22/16 17:30 10/23/16 17:29 Acetaminophen (Tylenol Tab) 650 mg ER BRIDGE PRN PO MILD PAIN/FEVER 10/22/16 17:30 10/23/16 17:29 Procedures/MDM EKG read by me: Rate/Rhythm: Regular rate and rhythm at a normal rate intervals: Normal Impression: No evidence of ischemia or arrhythmia Chest x-ray shows resolved pneumonia per radiology. CT scan of the chest is pending at this time. Smoking Cessation Therapy: Pt. was lectured for greater than 3 minutes on the health risks of continued smoking and the benefits of cessation. Patient is a 56-year-old male with hypertension, PE, and smoking who presents with chest pain. He stopped his Eliquis 15 days ago because he was unable to get refills. The patient has a high risk of repeat pulmonary embolism. Therefore I have ordered a CT of the chest which is pending. The patient was given aspirin, nitroglycerin, Dilaudid, and Zofran. He will be admitted to Dr. Madrid as he has [facility] insurance to Dr. Madrid admitted him recently. The patient will be admitted to a telemetry bed. Departure Diagnosis: Primary Impression: Chest pain Qualified Code: R07.9 - Chest pain, unspecified type Additional Impression: Shortness of breath Condition: GERSON Baig MD Oct 22, 2016 18:03
[2016-10-22 18:06] LABS: TROPONIN-I < 0.012 ng/ml (0.00-0.12)
[2016-10-22] MEDS ORDERED: IOHEXOL 100 ML ONE (18:26)
[2016-10-22] MEDS ORDERED: SOD CHLORIDE 0.9% 100 ML ONE (18:26)
[2016-10-22] MEDS ORDERED: IODIXANOL LOCM 100 ML BTL ONE (18:26)
--- NOTE | 2016-10-22 19:35 | RADRPT ---
PROCEDURE: CT Pulmonary Angiogram. CLINICAL INDICATION: Chest pain and shortness of breath. TECHNIQUE: CT pulmonary angiogram and a CT scan of the chest with contrast was performed. The pat ient was scanned following the uncomplicated intravenous administration of 90 cc of Visipaque 320 in travenous contrast. 2-D coronal reformatted images were obtained from the axial source images. In addition, 3-D post processing was performed. Total exam DLP is 404.65 mGy-cm. CTDIvol is 25.35 mGy . One or more of the following dose reduction techniques were used: Automated exposure control, adj ustment of the mA and/or kV according to patient size, use of iterative reconstruction technique. COMPARISON: Chest x-ray done earlier the same day. The pulmonary angiogram dated 08/19/2016 which demonstrated bilateral pulmonary emboli. FINDINGS: There are large bilateral pulmonary emboli in the right main pulmonary artery and left main pulmonar y artery, larger than seen previously, particularly on the right. Multiple filling defects are prese nt within the vessels in all lobes bilaterally. There is mild patchy air space disease at the right lung base posteriorly which may be due to pneumo angella or a developing infarct. The lungs are otherwise clear with no other airspace or interstitial di sease. There is no pulmonary nodule or mass lesion. There is no pneumothorax. The heart is mildly enlarged. There is no mediastinal or hilar lymphadenopathy or mass. There is no pleural effusion. There is no pericardial effusion. The thoracic aorta is normal with no aneurysm or dissection. Images through the upper abdomen demonstrate normal visualized portions of the liver, spleen, and ad renals. The osseous structures are normal with no fracture or lytic lesion. IMPRESSION: 1. Multiple large bilateral pulmonary emboli, larger than seen previously. 2. Air space disease at the right lung base posteriorly which may be due to pneumonia or a developi ng infarct. 3. Mild cardiomegaly. 4. Otherwise unremarkable study. 5.Call report: A call report of the findings was made to Dr. Peralta on 10/22/2016 at 1930 hours. RPTAT: QQ .Topher Ovalle MD, MD Date Time Electronically viewed and signed by .Topher Ovalle MD, on 10/22/2016 19:35 .R/
[2016-10-22 19:48] VITALS: BP 127/76; RESP 19
[2016-10-22 20:00] VITALS: PULSE 80; Ht 170.2 cm; Wt 75.0 kg
[2016-10-22] MEDS: ENOXAPARIN 100 MG/ML SYG SC SCH (21:41)
[2016-10-22] MEDS: PROMETHAZINE/CODEINE 5ML CUP PO SCH (21:45)
[2016-10-22 23:14] LABS: CREATINE KINASE 141 IU/L (23-200)
[2016-10-22] MEDS: HYDROCODONE/APAP (5/325) TAB PO PRN (23:21)
[2016-10-22 23:27] LABS: CK-MB 1.35 ng/ml (0.0-2.4); TROPONIN-I < 0.012 ng/ml (0.00-0.12)
[2016-10-22 23:48] VITALS: BP 128/70; RESP 19
[2016-10-22] MEDS: morphine 2 MG INJ IV PRN (23:49)
[2016-10-23] VITALS (12 sets, daily range): BP systolic 119–154; BP diastolic 70–87; PULSE 69–84; RESP 16–19
[2016-10-23] MEDS: morphine 2 MG INJ IV PRN (04:53)
[2016-10-23] MEDS: HYDROCODONE/APAP (5/325) TAB PO PRN ×2 (05:30→19:59)
[2016-10-23] MEDS: PROMETHAZINE/CODEINE 5ML CUP PO SCH ×3 (06:01→21:24)
[2016-10-23 07:16] LABS: BASOPHILS % 0.2 % (0.0-2.0); EOSINOPHILS # 0.2 10^3/ul (0.0-0.5); EOSINOPHILS % 1.6 % (0.0-7.0); HEMATOCRIT 45.3 % (42.0-52.0); HEMOGLOBIN 13.5 g/dl (14.0-18.0); LYMPHOCYTES # 1.6 10^3/ul (0.8-2.9); LYMPHOCYTES % 12.7 % (15.0-51.0); MEAN CORPUSCULAR HEMOGLOBIN 21.1 pg (29.0-33.0); MEAN CORPUSCULAR HGB CONC 29.8 g/dl (32.0-37.0); MEAN CORPUSCULAR VOLUME 70.9 fl (82.0-101.0); MEAN PLATELET VOLUME 9.9 fl (7.4-10.4); MONOCYTE # 1.5 10^3/ul (0.3-0.9); MONOCYTES % 12.3 % (0.0-11.0); NEUTROPHIL # 8.8 10^3/ul (1.6-7.5); NEUTROPHILS % 72.6 % (39.0-77.0); PLATELET COUNT 269 10^3/UL (140-415); RED BLOOD COUNT 6.39 10^6/ul (4.70-6.10); RED CELL DISTRIBUTION WIDTH 16.4 % (11.5-14.5); WHITE BLOOD COUNT 12.2 10^3/ul (4.8-10.8)
[2016-10-23 07:44] LABS: CALCIUM 9.5 mg/dl (8.4-10.2); CREATININE 1.31 mg/dl (0.61-1.24); POTASSIUM 3.9 mmol/L (3.5-5.1)
[2016-10-23 08:00] LABS: TROPONIN-I 0.017 ng/ml (0.00-0.12)
[2016-10-23 08:19] LABS: CK-MB 1.59 ng/ml (0.0-2.4)
[2016-10-23] MEDS: ENOXAPARIN 100 MG/ML SYG SC SCH ×2 (08:57→21:14)
[2016-10-23] MEDS: LEVOFLOXACIN 750MG/D5W (PMX) 150 ML IVPB SCH (12:00)
[2016-10-23] MEDS: NS + KCL 20 MEQ 1,000 ML IV SCH (12:01)
--- NOTE | 2016-10-23 12:01 | PN ---
Date/Time of Note Date/Time of Note DATE: 10/23/16 TIME: 11:59 Assessment/Plan VTE Prophylaxis VTE Prophylaxis Intervention: other Lines/Catheters [facility] Saline Lock Urinary Cath still in place: No Assessment/Plan Chief Complaint/Hosp Course 1) pulmonary embolus - continue pain medication, heparin - monitor clinically Problems: Subjective 24 Hr Interval Summary Free Text/Dictation Patient is complaining of severe chest pain thought patient was resting comfortably when I originally came into the room Exam/Review of Systems Vital Signs Vitals Vital Signs Date Time Temp Pulse Resp B/P Pulse Ox O2 Delivery O2 Flow Rate FiO2 10/23/16 11:19 97.9 77 16 119/70 94 10/22/16 17:38 Room Air Intake and Output 10/22/16 10/22/16 10/23/16 15:00 23:00 07:00 Intake Total 800 ml Balance 800 ml Exam Constitutional: well developed Head: atraumatic, normocephalic Neck: supple Respiratory: clear to auscultation Cardiovascular: regular rate and rhythm Gastrointestinal: non-tender, soft Extremities: normal pulses Results Result Diagram: 10/23/16 0627 10/23/16 0627 Results 24 hrs Laboratory Tests Test 10/22/16 17:10 10/22/16 22:10 10/23/16 06:27 White Blood Count 12.5 #H 12.2 H Red Blood Count 7.07 H 6.39 H Hemoglobin 15.1 13.5 L Hematocrit 49.6 45.3 Mean Corpuscular Volume 70.2 L 70.9 L Mean Corpuscular Hemoglobin 21.4 L 21.1 L Mean Corpuscular Hemoglobin Concent 30.4 L 29.8 L Red Cell Distribution Width 17.2 H 16.4 H Platelet Count 244 # 269 Mean Platelet Volume 9.4 9.9 Neutrophils % 73.9 72.6 Lymphocytes % 15.0 12.7 L Monocytes % 9.5 12.3 H Eosinophils % 0.7 1.6 Basophils % 0.2 0.2 Nucleated Red Blood Cells % 0.0 0.0 Neutrophils # 9.2 H 8.8 H Lymphocytes # 1.9 1.6 Monocytes # 1.2 H 1.5 H Eosinophils # 0.1 0.2 Basophils # 0.0 0.0 Nucleated Red Blood Cells # 0.0 0.0 Sodium Level 139 138 Potassium Level 3.7 3.9 Chloride Level 98 100 Carbon Dioxide Level 27 27 Anion Gap 18 H 15 Blood Urea Nitrogen 13 14 Creatinine 1.38 H 1.31 H Glucose Level 117 142 Calcium Level 10.2 9.5 Troponin I < 0.012 < 0.012 0.017 Creatine Kinase 141 146 Creatine Kinase Index 1.0 1.1 Creatinine Kinase MB (Mass) 1.35 1.59 Medications Medications Current Medications Enoxaparin Sodium (Lovenox) 75 mg Q12 SC Last administered on 10/23/16 08:57; Admin Dose 75 MG; Start 10/22/16 at 21:00 Acetaminophen (Tylenol Tab) 650 mg Q4H PRN PO PAIN AND OR ELEVATED TEMP; Start 10/22/16 at 20:00 Acetaminophen/ Hydrocodone Bitart ([place] (5/325)) 1 tab Q6H PRN PO MODERATE PAIN LEVEL 4-6 Last administered on 10/23/16 05:30; Admin Dose 1 TAB; Start at 20:00 Promethazine HCl/ Codeine 10 ml 10 ml Q8 PO Last administered on 10/23/16 06: 01; Admin Dose 10 ML; Start 10/22/16 at 22:00 Levofloxacin/ Dextrose 150 ml @ 100 mls/hr Q24H IVPB ; Start 10/23/16 at 11:00 Potassium Chloride/Sodium Chloride (NS-KCl 20 Meq) 1,000 ml @ 75 mls/hr [id number] IV ; Start 10/23/16 at 11:00 Morphine Sulfate (morphine) 4 mg Q4H PRN IV PAIN LEVEL 6-10; Start 10/23/16 at 12:00; Status LINNEA MCBRIDE Y Oct 23, 2016 12:00
[2016-10-23] MEDS ORDERED: morphine 2 MG INJ IV ONE (12:30)
--- NOTE | 2016-10-23 15:59 | HP ---
DATE OF ADMISSION: 10/22/2016 HISTORY OF PRESENT ILLNESS: History was obtained after discussion patient, as well as Dr. Sanjeev Peralta, ER physician. Patient is a 56-year-old gentleman well known to me from recent admission. Patient has history of hypertension and pulmonary embolism. Patient's history dates back to June 2016 when he was diagnosed with pulmonary embolism. Patient was given Lovenox and subsequently was discharged home on Eliquis. Patient is noncompliant with his care and in fact at one time left against medical advice on 08/20/2016, and had come back that same day due to increasing symptom. Patient stated that he has not been taking his medications for more than two weeks and came to ER with right-sided pleuritic chest pain. Patient has dry cough and was mildly short of breath. Patient did not have any fever or chills. No reported leg pain. No reported leg edema. No reported abdominal pain. Patient did have blood-tinged sputum. Patient was seen in ER and had CT pulmonary angiogram which revealed large bilateral pulmonary emboli in the right main pulmonary artery and left main pulmonary artery larger than seen previously but clear on the right. Multiple filling defects are present within this vessel in all lobes bilaterally. There is mild patchy airspace disease at the right lung base posteriorly which may be due to pneumonia or developing infarct. Lungs otherwise are clear. Patient had mild leukocytosis, however, did not have any left shift. Patient was not tachycardic and was hemodynamically stable. Patient did receive IV Dilaudid, aspirin and IV Zofran in ER and is being admitted for further evaluation and management. Patient denied any abdominal pain. No reported vomiting or diarrhea. No reported headache, dizziness, syncope. Patient did report mild chills prior to coming to the hospital and had one reading of temperature 101.2. Since then, he has subsequently remained afebrile. Patient is being admitted for further evaluation and management. PAST MEDICAL HISTORY: As stated above. PAST SURGICAL HISTORY: Patient is status post left shoulder arthroscopic surgery. FAMILY HISTORY: Noncontributory to patient's condition. SOCIAL HISTORY: Patient continues to smoke at least half-pack per day. Alcohol use, socially. MEDICATIONS PRIOR TO ADMISSION: None. PHYSICAL EXAMINATION: Patient to be conscious, awake, alert. VITAL SIGNS: Upon arrival, temperature 101.2, pulse 98, respirations 20, blood pressure initially was 165/90. When I saw him in ER, the blood pressure was down to 128/65. Patient was saturating 99% on room air. HEENT: Atraumatic head. Conjunctivae is normal. Oropharynx clear. NECK: Supple. No mass, no thyromegaly. CHEST: Revealed diminished breath sounds at right base. No use of accessory muscles. CVS: S1, S2 normal. No murmur, gallop, rub. ABDOMEN: Soft, nondistended, nontender. Bowel sounds present. EXTREMITIES: No leg edema. NEUROLOGIC: Patient is awake, alert, fairly oriented with no gross focal deficits. LABORATORY: WBC 12.5, hemoglobin 15.1, MCV 70.2, platelet 244,000. Sodium 139, potassium 3.7, BUN 13, creatinine 1.3. Troponin negative. IMPRESSION: 1. Bilateral pulmonary embolism. 2. History of hypertension. 3. Noncompliance. 4. Mild acute kidney injury. 5. Tobacco abuse. PLAN: Patient admitted on telemetry floor. Patient will be started on Lovenox and will also be started on symptomatic treatment for cough. I will also add IV Levaquin and will also give IV fluids. Will obtain 2D echocardiogram. Patient was advised to quit smoking. Patient was also advised to be compliant with his care due to life-threatening nature of his illness. Pulmonary consult will also be obtained. Will also obtain hematology consult in view of recurrent pulmonary embolism and persistent microcytosis and hypochromia, although his hemoglobin has remained stable between 13 and 15, and has had normal liver enzymes back in August 2016 except for slightly elevated alk phos. Further recommendations will depend on patient's hospital course and recommendations from consultants. Will continue to follow. Dictated By: Miguel Ángel Madrid MD /mauro/mehran /Document#: [id number]
[2016-10-23] MEDS: morphine 4 MG/ML VIAL IV PRN ×2 (17:19→21:24)
[2016-10-24] VITALS (17 sets, daily range): BP systolic 133–184; BP diastolic 66–96; PULSE 62–85; RESP 19
[2016-10-24] MEDS: NS + KCL 20 MEQ 1,000 ML IV SCH ×4 (00:20→21:29)
[2016-10-24] MEDS: morphine 4 MG/ML VIAL IV PRN ×5 (02:09→22:31)
[2016-10-24] MEDS: PROMETHAZINE/CODEINE 5ML CUP PO SCH ×3 (05:26→21:29)
[2016-10-24 07:04] LABS: IRON 20 ug/dl (35-150)
[2016-10-24 07:06] LABS: ALBUMIN 3.7 g/dl (3.3-4.9); ALBUMIN/GLOBULIN RATIO 0.97; BILIRUBIN,INDIRECT 0.2 mg/dl (0-1.1); BILIRUBIN,TOTAL 0.2 mg/dl (0.2-1.3); CALCIUM 9.2 mg/dl (8.4-10.2); CHOL/HDL RATIO 4.2 RATIO; CREATININE 1.21 mg/dl (0.61-1.24); POTASSIUM 3.9 mmol/L (3.5-5.1); TOTAL PROTEIN 7.5 g/dl (6.1-8.1)
[2016-10-24 07:14] LABS: TOTAL IRON BINDING CAPACITY 268 ug/dl (241-421)
[2016-10-24] MEDS: ENOXAPARIN 100 MG/ML SYG SC SCH ×2 (09:34→21:36)
[2016-10-24] MEDS: LEVOFLOXACIN 750MG/D5W (PMX) 150 ML IVPB SCH (11:34)
--- NOTE | 2016-10-24 12:13 | PN ---
Date/Time of Note Date/Time of Note DATE: 10/24/16 TIME: 12:13 Assessment/Plan VTE Prophylaxis VTE Prophylaxis Intervention: other Lines/Catheters IV Catheter Type (from Nrs): Peripheral IV Urinary Cath still in place: No Assessment/Plan Chief Complaint/Hosp Course 1) pulmonary embolus - continue pain medication, heparin - monitor clinically Problems: Subjective 24 Hr Interval Summary Free Text/Dictation Patient complains of continue chest pain Exam/Review of Systems Vital Signs Vitals Vital Signs Date Time Temp Pulse Resp B/P Pulse Ox O2 Delivery O2 Flow Rate FiO2 10/24/16 11:37 97.8 77 19 182/96 97 10/24/16 07:50 Nasal Cannula 3.0 10/24/16 00:10 30 Intake and Output 10/23/16 10/23/16 10/24/16 15:00 23:00 07:00 Intake Total 1840 ml 1210 ml Output Total 600 ml Balance 1840 ml 610 ml Exam Constitutional: well developed Head: atraumatic, normocephalic Neck: supple Respiratory: diminished breath sounds Cardiovascular: regular rate and rhythm Gastrointestinal: non-tender, soft Extremities: normal pulses Results Result Diagram: 10/23/16 0627 10/24/16 0612 Results 24 hrs Laboratory Tests Test 10/24/16 06:12 Sodium Level 141 Potassium Level 3.9 Chloride Level 102 Carbon Dioxide Level 30 Anion Gap 13 Blood Urea Nitrogen 13 Creatinine 1.21 Glucose Level 119 Calcium Level 9.2 Iron Level 20 L Total Iron Binding Capacity 268 Percent Iron Saturation 7 L Ferritin 166.0 Total Bilirubin 0.2 Direct Bilirubin 0.00 Indirect Bilirubin 0.2 Aspartate Amino Transf (AST/SGOT) 17 Alanine Aminotransferase (ALT/SGPT) 25 Alkaline Phosphatase 136 H Total Protein 7.5 Albumin 3.7 Globulin 3.80 H Albumin/Globulin Ratio 0.97 Triglycerides Level 90 Cholesterol Level 114 LDL Cholesterol, Calculated 69 HDL Cholesterol 27 L Cholesterol/HDL Ratio 4.2 Medications Medications Current Medications Enoxaparin Sodium (Lovenox) 75 mg Q12 SC Last administered on 10/24/16t 09:34; Admin Dose 75 MG; Start 10/22/16 at 21:00 Acetaminophen (Tylenol Tab) 650 mg Q4H PRN PO PAIN AND OR ELEVATED TEMP; Start 10/22/16 at 20:00 Acetaminophen/ Hydrocodone Bitart ([place] (5/325)) 1 tab Q6H PRN PO MODERATE PAIN LEVEL 4-6 Last administered on 10/23/16 19:59; Admin Dose 1 TAB; Start at 20:00 Promethazine HCl/ Codeine 10 ml 10 ml Q8 PO Last administered on 10/24/16 05: 26; Admin Dose 10 ML; Start 10/22/16 at 22:00 Levofloxacin/ Dextrose 150 ml @ 100 mls/hr Q24H IVPB Last administered on 10/24 11:34; Admin Dose 100 MLS/HR; Start 10/23/16 at 11:00 Potassium Chloride/Sodium Chloride (NS-KCl 20 Meq) 1,000 ml @ 75 mls/hr [id number] IV Last administered on 10/24/16 05:27; Admin Dose 75 MLS/HR; Start at 11:00 Morphine Sulfate (morphine) 4 mg Q4H PRN IV PAIN LEVEL 6-10 Last administered on 10/24/16 11:34; Admin Dose 4 MG; Start 10/23/16 at 12:00 Clonidine (Catapres) 0.1 mg Q6H PRN PO ELEVATED BLOOD PRESSURE Last administered on 10/24/16 11:39; Admin Dose 0.1 MG; Start 10/24/16 at 10:00 LINNEA HAYS Oct 24, 2016 12:13
[2016-10-24] MEDS: HYDROCODONE/APAP (5/325) TAB PO PRN (21:35)
--- NOTE | 2016-10-24 22:44 | CONS ---
Date/Time of Note Date/Time of Note DATE: 10/24/16 TIME: 22:03 Assessment/Plan Assessment/Plan Chief Complaint/Hosp Course #Bilateral Pulmonary emboli -patient admits to not having taken his medication prior to re-admission with worsening PE -would recommend to restart Eliquis 10mg BID x 7 days then switch to 5 mg BID -will communicate with primary to see if if is ok to make the switch from Lovenox to Eliquis now -given the extent of PE, pt will likely need lifelong anticoagulation -will wait to perform hypercoagulable panel as an out patient as patient has been on Lovenox which can affect the results #Left Lower Lobe pneumonia -continue antibiotics #microcytosis -iron studies are consistent with iron deficiency -start po iron at this time -will check Hg electrophoresis to r/o thalessemia Problems: Consultation Date/Type/Reason Admit Date/Time Oct 22, 2016 at 17:12 Date of Consultation: Oct 25, 2016 Type of Consultation: Hematology Reason for Consultation recurrent pulmonary embolism Referring Provider: LO DICKERSON MD Hx of Present Illness 56-year-old gentleman with history of hypertension and pulmonary embolism. Patient was first diagnosed with pulmonary embolism in June 2016. Per records, patient was given Lovenox and subsequently was discharged home on Eliquis. Pt has a history of being non compliant with his meds and was readmitted in August with similar symptoms. A CTA was done which again revealed bilateral pulmonary emboli left greater than right without evidence of right ventricular strain. He apparently left against medical advice at that time and represented later in the day with the same symptoms. He now presents again with same symptoms of chest pain and pressure and states that he has not taken his medications in more than 2 weeks. He now complains of dry cough and pleuritic chest pain. Repeat CTA was done which again reveals multiple large bilateral pulmonary emboli, larger than seen previously . Pt is also noted to have microcytosis with a low normal Hg. We have been consulted for further workup. Pt is currently on Lovenox 1mg/kg q 12 hours. Constitutional: other (still with chest pain) Eyes: no complaints Respiratory: shortness of breath Cardiovascular: chest pain Gastrointestinal: no complaints Genitourinary: no complaints Past Medical History hypertension h/o pulmonary embolism Past Surgical History status post left shoulder arthroscopic surgery. Family History Significant Family History: no pertinent family hx Social History Smoking Status: Current every day smoker Exam/Review of Systems Vital Signs Vitals Vital Signs Date Time Temp Pulse Resp B/P Pulse Ox O2 Delivery O2 Flow Rate FiO2 10/24/16 21:43 68 184/95 95 Nasal Cannula 3.0 10/24/16 20:05 98.1 19 10/24/16 07:00 21 Intake and Output 10/23/16 10/23/16 10/24/16 15:00 23:00 07:00 Intake Total 1840 ml 1210 ml Output Total 600 ml Balance 1840 ml 610 ml Exam Constitutional: alert, oriented Head: normocephalic Eyes: nl conjunctiva ENMT: nl external ears & nose Neck: non-tender, supple Respiratory: clear to auscultation, normal air movement Cardiovascular: regular rate and rhythm Gastrointestinal: soft Musculoskeletal: nl extremities to inspection Neurological: [employer] II-XII intact Results Result Diagram: 10/23/16 0627 10/24/16 0612 Results 24 hrs Laboratory Tests Test 10/24/16 06:12 Sodium Level 141 Potassium Level 3.9 Chloride Level 102 Carbon Dioxide Level 30 Anion Gap 13 Blood Urea Nitrogen 13 Creatinine 1.21 Glucose Level 119 Calcium Level 9.2 Iron Level 20 L Total Iron Binding Capacity 268 Percent Iron Saturation 7 L Ferritin 166.0 Total Bilirubin 0.2 Direct Bilirubin 0.00 Indirect Bilirubin 0.2 Aspartate Amino Transf (AST/SGOT) 17 Alanine Aminotransferase (ALT/SGPT) 25 Alkaline Phosphatase 136 H Total Protein 7.5 Albumin 3.7 Globulin 3.80 H Albumin/Globulin Ratio 0.97 Triglycerides Level 90 Cholesterol Level 114 LDL Cholesterol, Calculated 69 HDL Cholesterol 27 L Cholesterol/HDL Ratio 4.2 Medications Medications Current Medications Enoxaparin Sodium (Lovenox) 75 mg Q12 SC Last administered on 10/24/16 21:36; Admin Dose 75 MG; Start 10/22/16 at 21:00 Acetaminophen (Tylenol Tab) 650 mg Q4H PRN PO PAIN AND OR ELEVATED TEMP; Start 10/22/16 at 20:00 Acetaminophen/ Hydrocodone Bitart ([place] (5/325)) 1 tab Q6H PRN PO MODERATE PAIN LEVEL 4-6 Last administered on 10/24/16 21:35; Admin Dose 1 TAB; Start at 20:00 Promethazine HCl/ Codeine 10 ml 10 ml Q8 PO Last administered on 10/24/16 21: 29; Admin Dose 10 ML; Start 10/22/16 at 22:00 Levofloxacin/ Dextrose 150 ml @ 100 mls/hr Q24H IVPB Last administered on 10/24 11:34; Admin Dose 100 MLS/HR; Start 10/23/16 at 11:00 Potassium Chloride/Sodium Chloride (NS-KCl 20 Meq) 1,000 ml @ 75 mls/hr [id number] IV Last administered on 10/24/16 21:29; Admin Dose 75 MLS/HR; Start at 11:00 Morphine Sulfate (morphine) 4 mg Q4H PRN IV PAIN LEVEL 6-10 Last administered on 10/24/16 18:32; Admin Dose 4 MG; Start 10/23/16 at 12:00 Clonidine (Catapres) 0.1 mg Q6H PRN PO ELEVATED BLOOD PRESSURE Last administered on 10/24/16 21:30; Admin Dose 0.1 MG; Start 10/24/16 at 10:00 Hydralazine HCl (Apresoline) 25 mg Q6H PRN PO ELEVATED BLOOD PRESSURE Last administered on 10/24/16 16:58; Admin Dose 25 MG; Start 10/24/16 at 17:00 LUISA OLSEN M.D. Oct 24, 2016 22:13
[2016-10-25] VITALS (12 sets, daily range): BP systolic 133–161; BP diastolic 65–95; PULSE 53–65; RESP 16–20
[2016-10-25] MEDS: NS + KCL 20 MEQ 1,000 ML IV SCH ×2 (03:00→17:33)
[2016-10-25] MEDS: PROMETHAZINE/CODEINE 5ML CUP PO SCH ×3 (05:56→20:36)
[2016-10-25] MEDS: morphine 4 MG/ML VIAL IV PRN ×2 (05:56→20:15)
[2016-10-25] MEDS: ENOXAPARIN 100 MG/ML SYG SC SCH (08:26)
--- NOTE | 2016-10-25 10:05 | RADRPT ---
Echocardiogram Report Patient Name: VENTURA COOPER Gender: Male Date: 1960 Study Date: 23-Oct-2016 Prosthetic Aide: ROLY Location: I Ref. Physician: LO DICKERSON Quality: Adequate Procedures: Transthoracic echocardiogram with complete 2D, M-Mode, and doppler examination. Indications: Pulmonary embolism. 2D/M Mode Doppler Measurement Value Normal Ranges Measurement Value Normal Ranges AoR Diam MM 3.6 cm AV Peak Shaun 1.3 m/sec ACS MM 2.2 cm AV Peak PG 7.0 mmHg LVIDd 2D 4.3 3.5 - 5.6 cm LVOT Peak Shaun 1.0 m/sec LVIDs 2D 2.6 2.1 - 4.1 cm LVOT Peak PG 4.2 mmHg LVPWd 2D 1.2 0.6 - 1.1 cm MV E Peak Shaun 0.5 m/sec IVSd 2D 1.5 0.6 - 1.1 cm MV A Peak Shaun 0.6 m/sec EDV 2D 81.5 cm3 MV E/A 0.9 ESV 2D 16.6 cm3 MV Decel Time 226 msec LA Dimen 2D 3.2 2.3 - 4.0 cm MV Decel Anderson 2 MV E/A 0.9 PV Peak Shaun 0.8 m/sec PV Peak PG 2.0 mmHg Findings Left Ventricle: Normal left ventricular systolic function. Normal left ventricular cavity size. Mild concentric left ventricular hypertrophy. Ejection fraction is visually estimated at 55 %. Tissue Doppler/Mitral Doppler indices are consistent with impaired relaxation (Stage I diastolic dysfunction). E/E`=4. Right Ventricle: Normal right ventricular size. Left Atrium: The left atrium is normal in size. Right Atrium: The right atrium is normal in size. Atrial Septum: Normal atrial septum. Mitral Valve: Normal appearance and function of the mitral valve with trace physiologic regurgitation. Aortic Valve: No significant aortic stenosis or insufficiency. Normal trileaflet aortic valve structure. Tricuspid Valve: Normal appearance of the tricuspid valve. There is trace tricuspid regurgitation. Pulmonic Valve: Normal pulmonic valve appearance. No evidence of pulmonic regurgitation. Pericardium: Normal pericardium with no significant pericardial effusion. Aorta: Normal aortic root. IVC: Normal size and normal respiratory collapse consistent with normal right atrial pressure. Pulmonary Artery: Normal pulmonary artery size. Conclusions 1.Normal left ventricular systolic function. Normal left ventricular cavity size. Mild concentric left ventricular hypertrophy. Ejection fraction is visually estimated at 55 %. Tissue Doppler/Mitral Doppler indices are consistent with impaired relaxation (Stage I diastolic dysfunction). E/E`=4. 2.Normal appearance and function of the mitral valve with trace physiologic regurgitation. 3.Normal appearance of the tricuspid valve. There is trace tricuspid regurgitation. Electronically Signed By: Chepe Byrnes 25-Oct-2016 10:04:25 -0700 Patient Name: VENTURA COOPER Study Date: 23-Oct-2016 [id number]
[2016-10-25] MEDS: LEVOFLOXACIN 750MG/D5W (PMX) 150 ML IVPB SCH (10:53)
--- NOTE | 2016-10-25 16:47 | PN ---
Date/Time of Note Date/Time of Note DATE: 10/25/16 TIME: 16:41 Assessment/Plan VTE Prophylaxis VTE Prophylaxis Intervention: SCD's Lines/Catheters IV Catheter Type (from Nrsg): Peripheral IV Central line still needed: Yes Urinary Cath still in place: No Assessment/Plan Chief Complaint/Hosp Course Patient's complains of constipation, denies any shortness of breath, complains of cough. Problems: Assessment/Plan - Bilateral pulmonary embolism. Continue Eliquis. Dr. Merritt hematology consult is appreciated - Lower lobe pneumonia continue Levaquin. - History of hypertension. Continue hydralazine as needed. - Tobacco dependence, cessation is strongly advised. - History of medical noncompliance. Further recommendations based on clinical course. Plan of care discussed with Dr. Madrid Exam/Review of Systems Vital Signs Vitals Vital Signs Date Time Temp Pulse Resp B/P Pulse Ox O2 Delivery O2 Flow Rate FiO2 10/25/16 16:22 65 10/25/16 15:47 97.8 16 137/87 97 10/25/16 07:58 Nasal Cannula 3.0 10/24/16 07:00 21 Intake and Output 10/24/16 10/24/16 10/25/16 15:00 23:00 07:00 Intake Total 1950 ml 1150 ml Output Total 1200 ml 1300 ml Balance 750 ml -150 ml Exam Constitutional: alert, oriented Neck: supple Respiratory: diminished breath sounds Cardiovascular: nl pulses Gastrointestinal: non-tender, soft Musculoskeletal: nl extremities to inspection Extremities: normal pulses Neurological: nl mental status Results Result Diagram: 10/23/16 0627 10/24/16 0612 Medications Medications Current Medications Acetaminophen (Tylenol Tab) 650 mg Q4H PRN PO PAIN AND OR ELEVATED TEMP; Start 10/22/16 at 20:00 Acetaminophen/ Hydrocodone Bitart ([place] (5/325)) 1 tab Q6H PRN PO MODERATE PAIN LEVEL 4-6 Last administered on 10/24/16 21:35; Admin Dose 1 TAB; Start at 20:00 Promethazine HCl/ Codeine 10 ml 10 ml Q8 PO Last administered on 10/25/16 13: 46; Admin Dose 10 ML; Start 10/22/16 at 22:00 Levofloxacin/ Dextrose 150 ml @ 100 mls/hr Q24H IVPB Last administered on 10/25 10:53; Admin Dose 100 MLS/HR; Start 10/23/16 at 11:00 Potassium Chloride/Sodium Chloride (NS-KCl 20 Meq) 1,000 ml @ 75 mls/hr [id number] IV Last administered on 10/24/16 21:29; Admin Dose 75 MLS/HR; Start at 11:00 Morphine Sulfate (morphine) 4 mg Q4H PRN IV PAIN LEVEL 6-10 Last administered on 10/25/16 05:56; Admin Dose 4 MG; Start 10/23/16 at 12:00 Clonidine (Catapres) 0.1 mg Q6H PRN PO ELEVATED BLOOD PRESSURE Last administered on 10/24/16 21:30; Admin Dose 0.1 MG; Start 10/24/16 at 10:00 Hydralazine HCl (Apresoline) 25 mg Q6H PRN PO ELEVATED BLOOD PRESSURE Last administered on 10/24/16 16:58; Admin Dose 25 MG; Start 10/24/16 at 17:00 Polysaccharide Iron Complex (Niferex-150) 1 cap BID PO ; Start 10/25/16 at 21:00 Apixaban (Eliquis) 10 mg BID PO ; Start 10/25/16 at 21:00; Stop 10/31/16 at 23: 59 Apixaban (Eliquis) 5 mg BID PO ; Start 11/01/16 at 09:00 GUNJAN PETTY Oct 25, 2016 16:47
[2016-10-25] MEDS ORDERED: POLYETHYLENE GLYCOL 17 GM PACKET NGT PRN (17:00)
[2016-10-25] MEDS ORDERED: DOCUSATE SODIUM 100 MG CAP PO PRN (17:00)
[2016-10-25] MEDS ORDERED: LEVALBUTEROL (NEB) 0.63 MG/3 ML AMP HHN PRN (17:00)
[2016-10-25] MEDS: POLYSACCHARIDE IRON COMPLEX CAP PO SCH (20:16)
[2016-10-25] MEDS: HYDROCODONE/APAP (5/325) TAB PO PRN (20:16)
[2016-10-25] MEDS: APIXABAN 5 MG TABLET PO SCH (20:17)
[2016-10-25] MEDS: LEVALBUTEROL (NEB) 0.63 MG/3 ML AMP HHN SCH (22:20)
[2016-10-26] VITALS (16 sets, daily range): BP systolic 129–170; BP diastolic 64–98; PULSE 44–64; RESP 16–21
[2016-10-26] MEDS: LEVALBUTEROL (NEB) 0.63 MG/3 ML AMP HHN SCH ×4 (01:12→20:12)
[2016-10-26] MEDS: PROMETHAZINE/CODEINE 5ML CUP PO SCH ×3 (05:13→20:35)
[2016-10-26] MEDS: NS + KCL 20 MEQ 1,000 ML IV SCH ×3 (05:14→20:40)
[2016-10-26 08:23] LABS: BASOPHILS % 0.4 % (0.0-2.0); EOSINOPHILS # 0.4 10^3/ul (0.0-0.5); EOSINOPHILS % 5.2 % (0.0-7.0); HEMATOCRIT 41.2 % (42.0-52.0); HEMOGLOBIN 12.8 g/dl (14.0-18.0); LYMPHOCYTES # 1.6 10^3/ul (0.8-2.9); MEAN CORPUSCULAR HEMOGLOBIN 21.3 pg (29.0-33.0); MEAN CORPUSCULAR HGB CONC 31.1 g/dl (32.0-37.0); MEAN CORPUSCULAR VOLUME 68.4 fl (82.0-101.0); MEAN PLATELET VOLUME 9.5 fl (7.4-10.4); MONOCYTE # 0.6 10^3/ul (0.3-0.9); MONOCYTES % 9.3 % (0.0-11.0); NEUTROPHIL # 4.2 10^3/ul (1.6-7.5); NEUTROPHILS % 61.5 % (39.0-77.0); PLATELET COUNT 342 10^3/UL (140-415); RED BLOOD COUNT 6.02 10^6/ul (4.70-6.10); WHITE BLOOD COUNT 6.8 10^3/ul (4.8-10.8)
[2016-10-26 08:45] LABS: CREATININE 0.97 mg/dl (0.61-1.24); POTASSIUM 4.1 mmol/L (3.5-5.1)
[2016-10-26] MEDS: POLYSACCHARIDE IRON COMPLEX CAP PO SCH ×2 (08:45→20:33)
[2016-10-26] MEDS: APIXABAN 5 MG TABLET PO SCH ×2 (08:46→20:33)
[2016-10-26] MEDS: HYDROCODONE/APAP (5/325) TAB PO PRN (08:51)
[2016-10-26 09:08] LABS: HEMATOCRIT 40.5 % (38.5-50.0); MCH 21.9 pg (27.0-33.0); MCV 68.3 fL (80.0-100.0); RDW 15.2 % (11.0-15.0); RED BLOOD CELL COUNT 5.93 Million/uL (4.20-5.80)
[2016-10-26] MEDS: LEVOFLOXACIN 750MG/D5W (PMX) 150 ML IVPB SCH (10:42)
--- NOTE | 2016-10-26 12:27 | PN ---
Date/Time of Note Date/Time of Note DATE: 10/26/16 TIME: 12:25 Assessment/Plan VTE Prophylaxis VTE Prophylaxis Intervention: SCD's Lines/Catheters [facility] Peripheral IV Urinary Cath still in place: No Assessment/Plan Chief Complaint/Hosp Course Pt had run of V-tach in AM, SR now, denies CP, SOB. Dr Jackson asked to see pt in cardiology consults. Assessment/Plan - Bilateral pulmonary embolism. Continue Eliquis. Dr. Merritt hematology consult is appreciated - Lower lobe pneumonia continue Levaquin. - History of hypertension. Continue hydralazine as needed. - Preserved EF - Tobacco dependence, cessation is strongly advised. - History of medical noncompliance. Further recommendations based on clinical course. Plan of care discussed with Dr. Madrid Problems: Exam/Review of Systems Vital Signs Vitals Vital Signs Date Time Temp Pulse Resp B/P Pulse Ox O2 Delivery O2 Flow Rate FiO2 10/26/16 12:00 53 10/26/16 11:21 98.0 17 137/85 99 10/26/16 08:14 21 10/26/16 05:19 Nasal Cannula 2.0 Intake and Output 10/25/16 10/25/16 10/26/16 15:00 23:00 07:00 Intake Total 1600 ml 2300 ml Output Total 1400 ml 1600 ml Balance 200 ml 700 ml Exam Constitutional: alert, oriented Neck: supple Respiratory: diminished breath sounds Cardiovascular: nl pulses Gastrointestinal: non-tender, soft Musculoskeletal: nl extremities to inspection Extremities: normal pulses Neurological: nl mental status Results Result Diagram: 10/26/16 0742 10/26/16 0742 Results 24 hrs Laboratory Tests Test 10/26/16 07:42 White Blood Count 6.8 # Red Blood Count 6.02 Hemoglobin 12.8 L Hematocrit 41.2 L Mean Corpuscular Volume 68.4 L Mean Corpuscular Hemoglobin 21.3 L Mean Corpuscular Hemoglobin Concent 31.1 L Red Cell Distribution Width 15.0 H Platelet Count 342 # Mean Platelet Volume 9.5 Neutrophils % 61.5 Lymphocytes % 23.0 Monocytes % 9.3 Eosinophils % 5.2 Basophils % 0.4 Nucleated Red Blood Cells % 0.0 Neutrophils # 4.2 Lymphocytes # 1.6 Monocytes # 0.6 Eosinophils # 0.4 Basophils # 0.0 Nucleated Red Blood Cells # 0.0 Sodium Level 140 Potassium Level 4.1 Chloride Level 105 Carbon Dioxide Level 27 Anion Gap 12 Blood Urea Nitrogen 8 Creatinine 0.97 Glucose Level 102 Calcium Level 9.0 Medications Medications Current Medications Acetaminophen (Tylenol Tab) 650 mg Q4H PRN PO PAIN AND OR ELEVATED TEMP; Start 10/22/16 at 20:00 Acetaminophen/ Hydrocodone Bitart ([place] (5/325)) 1 tab Q6H PRN PO MODERATE PAIN LEVEL 4-6 Last administered on 10/26/16 08:51; Admin Dose 1 TAB; Start at 20:00 Promethazine HCl/ Codeine 10 ml 10 ml Q8 PO Last administered on 10/26/16 05: 13; Admin Dose 10 ML; Start 10/22/16 at 22:00 Potassium Chloride/Sodium Chloride (NS-KCl 20 Meq) 1,000 ml @ 75 mls/hr [id number] IV Last administered on 10/26/16 05:14; Admin Dose 75 MLS/HR; Start at 11:00 Morphine Sulfate (morphine) 4 mg Q4H PRN IV PAIN LEVEL 6-10 Last administered on 10/25/16 20:15; Admin Dose 4 MG; Start 10/23/16 at 12:00 Clonidine (Catapres) 0.1 mg Q6H PRN PO ELEVATED BLOOD PRESSURE Last administered on 10/26/16 03:54; Admin Dose 0.1 MG; Start 10/24/16 at 10:00 Hydralazine HCl (Apresoline) 25 mg Q6H PRN PO ELEVATED BLOOD PRESSURE Last administered on 10/26/16 09:13; Admin Dose 25 MG; Start 10/24/16 at 17:00 Polysaccharide Iron Complex (Niferex-150) 1 cap BID PO Last administered on 08:45; Admin Dose 1 CAP; Start 10/25/16 at 21:00 Apixaban (Eliquis) 10 mg BID PO Last administered on 10/26/16 08:46; Admin Dose 10 MG; Start 10/25/16 at 21:00; Stop 10/31/16 at 23:59 Apixaban (Eliquis) 5 mg BID PO ; Start 11/01/16 at 09:00 Polyethylene Glycol (Miralax) 17 gm DAILY PRN NGT CONSTIPATION; Start 10/25/16 at 17:00 Docusate Sodium (Colace) 100 mg DAILY PRN PO CONSTIPATION; Start 10/25/16 at 17 :00 Levofloxacin (Levaquin) 750 mg DAILY@06 PO ; Start 10/27/16 at 06:00 GUNJAN PETTY Oct 26, 2016 12:27
[2016-10-26] MEDS: morphine 4 MG/ML VIAL IV PRN (20:35)
[2016-10-27] VITALS (12 sets, daily range): BP systolic 151–167; BP diastolic 71–87; PULSE 51–63; RESP 18–20
[2016-10-27] MEDS: LEVALBUTEROL (NEB) 0.63 MG/3 ML AMP HHN SCH ×4 (01:53→19:54)
[2016-10-27] MEDS: LEVOFLOXACIN 750 MG TABLET PO SCH (05:27)
[2016-10-27] MEDS: PROMETHAZINE/CODEINE 5ML CUP PO SCH ×3 (05:28→20:13)
[2016-10-27] MEDS ORDERED: ONDANSETRON 4 MG INJ ONE (06:46)
--- NOTE | 2016-10-27 07:35 | CONS ---
DATE OF ADMISSION: 10/22/2016 DATE OF CONSULTATION: 10/26/2016 CONTINUATION PHYSICAL EXAMINATION: GENERAL: The patient is a older, lean black male, in no acute distress. He lies in bed with no difficulty and has no symptoms. He is able to ambulate and performing physical tasks without dyspnea. SKIN: Warm and dry, not clammy. HEENT: Normocephalic. Eyes: PER. EOMI. Conjunctivae and eyelids are normal. Sclerae anicteric. Oral mucosa moist, with no cyanosis. NECK: Supple, without thyromegaly or lymphadenopathy. There is no jugular vein distention. No pulsations or abnormal jugular vein waves detected. CHEST: Symmetric, with equal expansion. LUNGS: With inspiratory and expiratory rhonchi, dry crackles, but no wheezes. HEART: There is no left precordial heave. Regular rate and rhythm. No gallop or murmur detected. ABDOMEN: Soft, nontender, not distended. Bowel sounds present. EXTREMITIES: No edema, cyanosis or clubbing. Peripheral pulses palpable in both feet. LABORATORY: Electrocardiogram: Sinus rhythm, with diffuse nonspecific ST-T segment abnormalities. There is reduced R- amplitude in V2, which could be positional. No specific evidence of ischemia seen. Labs on admission: WBC 12,500, hemoglobin 15.1, platelet count 244,000. Sodium 139, potassium 3.7, BUN 13, creatinine 1.3. Troponin was negative. ASSESSMENT: 1. The patient primary diagnosis is recurrent bilateral pulmonary emboli, with significant thrombus burden by CT angiogram but only mild to moderate symptomatic discomfort (especially after anticoagulation). 2. Detection overnight of a single short episode of ventricular tachycardia, consistent of 4 beats or 5, which did not recur and is of negligible significance. RECOMMENDATIONS: 1. Continue anticoagulation, as you are doing. 2. Patient education to avoid further pulmonary emboli, which will significantly decrease his lifespan. Given the multiple recurrences over a 2-year period, it could be useful to involve Hematology in 3. order to rule out hematologic deficiencies that lead to recurrent pulmonary emboli. Thank you very much for asking me to participate in the evaluation of this patient. Dictated By: EMMETT AKHTAR MD /mauro/jennifer /Document#: [id number] CC: Miguel Ángel Madrid MD;*EndCC*
--- NOTE | 2016-10-27 07:35 | CONS ---
DATE OF ADMISSION: 10/22/2016 DATE OF CONSULTATION: 10/26/2016 REFERRING PHYSICIAN: Miguel Ángel Madrid MD REASON FOR CONSULTATION: Short sequence of ventricular tachycardia. PATIENT'S PROFILE AND HISTORY OF PRESENT ILLNESS: The patient is a 56-year-old black male admitted with shortness of breath and diagnosed in the emergency department with bilateral pulmonary emboli. The patient has history of recurrent pulmonary emboli, starting 2 years ago. He has been on (presumably) continuous systemic anticoagulation for prevention of pulmonary emboli and/or DVT. The patient is not compliant and has abandoned treatment frequently. The diagnosis was confirmed by CT angiogram, and significant clot burden in both main branches, pulmonary arteries. He was not severely ill, severely hypoxic or hemodynamically decompensated. The patient was treated with Lovenox and oral Eliquis and transferred to telemetry. During the night, on telemetry it was noted that he had a 4-beat wide complex, consistent with a very short and slow ventricular tachycardia. This essentially triggered the Cardiology consultation. PAST MEDICAL HISTORY/COMORBID CONDITIONS: Consist of his recurrent pulmonary emboli. PAST SURGICAL HISTORY: Status post left shoulder arthroscopic surgery. SOCIAL HISTORY/HABITS: The patient is a chronic smoker. (The precise or reliable pack/year history cannot be obtained). MEDICATIONS: None. (Patient abandoned recommended and prescribed systemic anticoagulation). REVIEW OF SYSTEMS: The patient had moderate dyspnea on arrival, which has gradually subsided. He denies orthopnea, PND, palpitations, chest pain, wheezing. The patient denies abdominal pain, lower extremity pain, swelling. The patient denies bleeding. ALLERGIES: NO KNOWN DRUG ALLERGIES ENTERED IN HIS RECORDS. PHYSICAL EXAMINATION: GENERAL: The patient is an older, lean black male in no acute distress. He is ambulatory, verbal and lies supine without difficulty. VITAL SIGNS: Height 5 feet 7 inches, weight 75 kg, blood pressure 145/79 mmHg, heart rate 59/regular, respiratory rate 16/minute, temperature is 97.7 degrees. SKIN: Warm and dry, not clammy. HEENT: Normocephalic. Eyes: DICTATION ENDS HERE. Dictated By: EMMETT AKHTAR MD /mauro/jennifer /Document#: [id number] CC: Miguel Ángel Madrid MD;*EndCC*
[2016-10-27 08:19] LABS: BASOPHILS % 0.5 % (0.0-2.0); EOSINOPHILS # 0.4 10^3/ul (0.0-0.5); EOSINOPHILS % 6.5 % (0.0-7.0); HEMATOCRIT 42.3 % (42.0-52.0); LYMPHOCYTES # 1.5 10^3/ul (0.8-2.9); LYMPHOCYTES % 27.6 % (15.0-51.0); MEAN CORPUSCULAR HEMOGLOBIN 21.5 pg (29.0-33.0); MEAN CORPUSCULAR HGB CONC 30.7 g/dl (32.0-37.0); MEAN PLATELET VOLUME 9.5 fl (7.4-10.4); MONOCYTE # 0.5 10^3/ul (0.3-0.9); NEUTROPHIL # 3.1 10^3/ul (1.6-7.5); NEUTROPHILS % 55.5 % (39.0-77.0); PLATELET COUNT 373 10^3/UL (140-415); RED BLOOD COUNT 6.04 10^6/ul (4.70-6.10); RED CELL DISTRIBUTION WIDTH 14.5 % (11.5-14.5); WHITE BLOOD COUNT 5.5 10^3/ul (4.8-10.8)
[2016-10-27 08:37] LABS: CALCIUM 8.9 mg/dl (8.4-10.2); CREATININE 0.93 mg/dl (0.61-1.24); POTASSIUM 4.7 mmol/L (3.5-5.1)
[2016-10-27] MEDS: APIXABAN 5 MG TABLET PO SCH ×2 (08:49→20:12)
[2016-10-27] MEDS: POLYSACCHARIDE IRON COMPLEX CAP PO SCH ×2 (08:49→20:13)
[2016-10-27 11:56] LABS: HEMOGLOBIN A 97.7 % (>96.0); HEMOGLOBIN A2 (QUANT) 2.3 % (1.8-3.5); HEMOGLOBIN F <1.0 % (<2.0)
[2016-10-27] MEDS: NS + KCL 20 MEQ 1,000 ML IV SCH (13:31)
[2016-10-27] MEDS: morphine 4 MG/ML VIAL IV PRN ×2 (13:32→20:13)
--- NOTE | 2016-10-27 15:14 | CONS ---
Date/Time of Note Date/Time of Note DATE: 10/27/16 TIME: 15:06 Assessment/Plan Assessment/Plan Chief Complaint/Hosp Course IMP: 1. Chest pain-likely secondary to recurrent PE/TROP NEG X 3/nl ef by echo with no sig strain by echo read 2. HTN 3. PNA 4.Diastolic dysfunction by echo this admit 5. Renal insuff/failure-IMPROVED 6. BRadycardia Recc: -Tele -serial ecg's -Continue eliquis -check venous almita to asssess thrombus burden -start Alan to improve BP control Problems: Consultation Date/Type/Reason Admit Date/Time Oct 22, 2016 at 17:12 Initial Consult Date 10/25/16 Type of Consultation: cardiology Reason for Consultation chest pain Referring Provider: LO DICKERSON MD Exam/Review of Systems Vital Signs Vitals Vital Signs Date Time Temp Pulse Resp B/P Pulse Ox O2 Delivery O2 Flow Rate FiO2 10/27/16 14:06 68 18 96 21 10/27/16 11:32 97.8 151/85 10/27/16 08:00 Nasal Cannula 2.0 Intake and Output 10/26/16 10/26/16 10/27/16 15:00 23:00 07:00 Intake Total 1900 ml 2210 ml Output Total 1000 ml 1000 ml Balance 900 ml 1210 ml Exam Review of Systems: CONSTITUTIONAL: No fevers, chills. PULMONARY: No sob CARDIOVASCULAR: No chest pain/palpitations GASTROINTESTINAL: No nausea/vomiting. GENITOURINARY: No hematuria/dysuria. MUSCULOSKELETAL: No myagias/arthalgias. PSYCHIATRIC: The patient denies depression. NEUROLOGIC: No weakness Constitutional: alert Psych: no complaints Head: normocephalic Neck: jvd (9 cm water), supple Respiratory: diminished breath sounds Cardiovascular: regular rate and rhythm Gastrointestinal: soft Musculoskeletal: muscle tone (normal) Extremities: edema (none) Neurological: other (No focal deficits) Results Result Diagram: 10/27/16 0745 10/27/16 0745 Results 24 hrs Laboratory Tests Test 10/27/16 07:45 White Blood Count 5.5 Red Blood Count 6.04 Hemoglobin 13.0 L Hematocrit 42.3 Mean Corpuscular Volume 70.0 L Mean Corpuscular Hemoglobin 21.5 L Mean Corpuscular Hemoglobin Concent 30.7 L Red Cell Distribution Width 14.5 Platelet Count 373 Mean Platelet Volume 9.5 Neutrophils % 55.5 Lymphocytes % 27.6 Monocytes % 9.0 Eosinophils % 6.5 Basophils % 0.5 Nucleated Red Blood Cells % 0.0 Neutrophils # 3.1 Lymphocytes # 1.5 Monocytes # 0.5 Eosinophils # 0.4 Basophils # 0.0 Nucleated Red Blood Cells # 0.0 Sodium Level 141 Potassium Level 4.7 Chloride Level 106 Carbon Dioxide Level 27 Anion Gap 13 Blood Urea Nitrogen 10 Creatinine 0.93 Glucose Level 100 Calcium Level 8.9 Medications Medications Current Medications Acetaminophen (Tylenol Tab) 650 mg Q4H PRN PO PAIN AND OR ELEVATED TEMP; Start 10/22/16 at 20:00 Acetaminophen/ Hydrocodone Bitart ([place] (5/325)) 1 tab Q6H PRN PO MODERATE PAIN LEVEL 4-6 Last administered on 10/26/16 08:51; Admin Dose 1 TAB; Start at 20:00 Promethazine HCl/ Codeine 10 ml 10 ml Q8 PO Last administered on 10/27/16 13: 31; Admin Dose 10 ML; Start 10/22/16 at 22:00 Potassium Chloride/Sodium Chloride (NS-KCl 20 Meq) 1,000 ml @ 75 mls/hr [id number] IV Last administered on 10/27/16 13:31; Admin Dose 75 MLS/HR; Start at 11:00 Morphine Sulfate (morphine) 4 mg Q4H PRN IV PAIN LEVEL 6-10 Last administered on 10/27/16 13:32; Admin Dose 4 MG; Start 10/23/16 at 12:00 Clonidine (Catapres) 0.1 mg Q6H PRN PO ELEVATED BLOOD PRESSURE Last administered on 10/26/16 20:34; Admin Dose 0.1 MG; Start 10/24/16 at 10:00 Hydralazine HCl (Apresoline) 25 mg Q6H PRN PO ELEVATED BLOOD PRESSURE Last administered on 10/26/16 09:13; Admin Dose 25 MG; Start 10/24/16 at 17:00 Polysaccharide Iron Complex (Niferex-150) 1 cap BID PO Last administered on 08:49; Admin Dose 1 CAP; Start 10/25/16 at 21:00 Apixaban (Eliquis) 10 mg BID PO Last administered on 10/27/16t 08:49; Admin Dose 10 MG; Start 10/25/16 at 21:00; Stop 10/31/16 at 23:59 Apixaban (Eliquis) 5 mg BID PO ; Start 11/01/16 at 09:00 Polyethylene Glycol (Miralax) 17 gm DAILY PRN NGT CONSTIPATION; Start 10/25/16 at 17:00 Docusate Sodium (Colace) 100 mg DAILY PRN PO CONSTIPATION; Start 10/25/16 at 17 :00 Levofloxacin (Levaquin) 750 mg DAILY@06 PO Last administered on 10/27/16t 05:27 ; Admin Dose 750 MG; Start 10/27/16 at 06:00 MICHELE MOYA Oct 27, 2016 15:14
--- NOTE | 2016-10-27 17:14 | PN ---
Date/Time of Note Date/Time of Note DATE: 10/27/16 TIME: 17:12 Assessment/Plan VTE Prophylaxis VTE Prophylaxis Intervention: SCD's Lines/Catheters IV C[facility]ter Type (from [facility]): Peripheral IV Urinary Cath still in place: No Assessment/Plan Chief Complaint/Hosp Course Patient stated improvement in respiratory status, no reports of arrhythmia, patient remains hemodynamically stable. Assessment/Plan - Bilateral pulmonary embolism. Continue Eliquis. Dr. Merritt hematology consult is appreciated - Lower lobe pneumonia continue Levaquin. - History of hypertension. Continue hydralazine as needed. Dr. Farmer is following and cardiology consultation. - Preserved EF - Tobacco dependence, cessation is strongly advised. - History of medical noncompliance. Further recommendations based on clinical course. Plan of care discussed with Dr. Madrid Problems: Exam/Review of Systems Vital Signs Vitals Vital Signs Date Time Temp Pulse Resp B/P Pulse Ox O2 Delivery O2 Flow Rate FiO2 10/27/16 17:03 59 10/27/16 15:33 97.8 18 155/71 98 10/27/16 14:06 21 10/27/16 08:00 Nasal Cannula 2.0 Intake and Output 10/26/16 10/26/16 10/27/16 15:00 23:00 07:00 Intake Total 1900 ml 2210 ml Output Total 1000 ml 1000 ml Balance 900 ml 1210 ml Exam Constitutional: alert, oriented Neck: supple Respiratory: diminished breath sounds Cardiovascular: nl pulses Gastrointestinal: non-tender, soft Musculoskeletal: nl extremities to inspection Extremities: normal pulses Neurological: nl mental status Results Result Diagram: 10/27/16 0745 10/27/16 0745 Results 24 hrs Laboratory Tests Test 10/27/16 07:45 White Blood Count 5.5 Red Blood Count 6.04 Hemoglobin 13.0 L Hematocrit 42.3 Mean Corpuscular Volume 70.0 L Mean Corpuscular Hemoglobin 21.5 L Mean Corpuscular Hemoglobin Concent 30.7 L Red Cell Distribution Width 14.5 Platelet Count 373 Mean Platelet Volume 9.5 Neutrophils % 55.5 Lymphocytes % 27.6 Monocytes % 9.0 Eosinophils % 6.5 Basophils % 0.5 Nucleated Red Blood Cells % 0.0 Neutrophils # 3.1 Lymphocytes # 1.5 Monocytes # 0.5 Eosinophils # 0.4 Basophils # 0.0 Nucleated Red Blood Cells # 0.0 Sodium Level 141 Potassium Level 4.7 Chloride Level 106 Carbon Dioxide Level 27 Anion Gap 13 Blood Urea Nitrogen 10 Creatinine 0.93 Glucose Level 100 Calcium Level 8.9 Medications Medications Current Medications Acetaminophen (Tylenol Tab) 650 mg Q4H PRN PO PAIN AND OR ELEVATED TEMP; Start 10/22/16 at 20:00 Acetaminophen/ Hydrocodone Bitart ([place] (5/325)) 1 tab Q6H PRN PO MODERATE PAIN LEVEL 4-6 Last administered on 10/26/16 08:51; Admin Dose 1 TAB; Start at 20:00 Promethazine HCl/ Codeine 10 ml 10 ml Q8 PO Last administered on 10/27/16 13: 31; Admin Dose 10 ML; Start 10/22/16 at 22:00 Potassium Chloride/Sodium Chloride (NS-KCl 20 Meq) 1,000 ml @ 75 mls/hr [id number] IV Last administered on 10/27/16 13:31; Admin Dose 75 MLS/HR; Start at 11:00 Morphine Sulfate (morphine) 4 mg Q4H PRN IV PAIN LEVEL 6-10 Last administered on 10/27/16 13:32; Admin Dose 4 MG; Start 10/23/16 at 12:00 Clonidine (Catapres) 0.1 mg Q6H PRN PO ELEVATED BLOOD PRESSURE Last administered on 10/26/16 20:34; Admin Dose 0.1 MG; Start 10/24/16 at 10:00 Hydralazine HCl (Apresoline) 25 mg Q6H PRN PO ELEVATED BLOOD PRESSURE Last administered on 10/26/16 09:13; Admin Dose 25 MG; Start 10/24/16 at 17:00 Polysaccharide Iron Complex (Niferex-150) 1 cap BID PO Last administered on 08:49; Admin Dose 1 CAP; Start 10/25/16 at 21:00 Apixaban (Eliquis) 10 mg BID PO Last administered on 10/27/16 08:49; Admin Dose 10 MG; Start 10/25/16 at 21:00; Stop 10/31/16 at 23:59 Apixaban (Eliquis) 5 mg BID PO ; Start 11/01/16 at 09:00 Polyethylene Glycol (Miralax) 17 gm DAILY PRN NGT CONSTIPATION; Start 10/25/16 at 17:00 Docusate Sodium (Colace) 100 mg DAILY PRN PO CONSTIPATION; Start 10/25/16 at 17 :00 Levofloxacin (Levaquin) 750 mg DAILY@06 PO Last administered on 10/27/16t 05:27 ; Admin Dose 750 MG; Start 10/27/16 at 06:00 GUNJAN PETTY Oct 27, 2016 17:14
--- NOTE | 2016-10-27 17:44 | PN ---
Date/Time of Note Date/Time of Note DATE: 10/27/16 TIME: 17:19 Assessment/Plan VTE Prophylaxis VTE Prophylaxis Intervention: other (apixaban BID) Lines/Catheters IV Catheter Type (from [facility]): Peripheral IV Urinary Cath still in place: No Subjective 24 Hr Interval Summary Free Text/Dictation Patient was admitted 2 days ago with symptomatic recurrent bilateral pulmonary artery. The patient was treated with subcutaneous and oral systemic oral anticoagulation and has rapidly improved symptomatically. Today he feels well, no dyspnea with mild exertion or at rest. Nevertheless, he requested his prescribed dose of morphine for chest pain. His insignificant (ventricular) arrhythmia did not recur. PHYSICAL EXAMINATION: GENERAL: The patient is a older, lean black male, in no acute distress. He lies in bed with no difficulty and has no symptoms. He is able to ambulate and performing physical tasks without dyspnea. SKIN: Warm and dry, not clammy. HEENT: Normocephalic. Eyes: PER. EOMI. Conjunctivae and eyelids are normal. Sclerae anicteric. Oral mucosa moist, with no cyanosis. NECK: Supple, without thyromegaly or lymphadenopathy. There is no jugular vein distention. No pulsations or abnormal jugular vein waves detected. CHEST: Symmetric, with equal expansion. LUNGS: Very few bibasilar rhonchi and crackles compared with yesterday. HEART: There is no left precordial heave. Regular rate and rhythm. No gallop or murmur detected. ABDOMEN: Soft, nontender, not distended. Bowel sounds present. EXTREMITIES: No edema, cyanosis or clubbing. Peripheral pulses palpable in both feet. EKG: (on monitor) shows normal sinus rhythm. ASSESSMENT / PLAN: 1. Recurrent, significant bilateral pulmonary emboli, on systemic anticoagulation (adequate). 2. Suspected pneumonia (treated). 3. Patient is apparently non compliant with medications and recommendations. 4. Given the recurrent nature of patient's disease, I cannot exclude hypercoagulable state or conditions. Recommendations: Hematology consult request to address possible hypercoagulability conditions. EMMETT AKHTAR MD Exam/Review of Systems Vital Signs Vitals Vital Signs Date Time Temp Pulse Resp B/P Pulse Ox O2 Delivery O2 Flow Rate FiO2 10/27/16 17:03 59 10/27/16 15:33 97.8 18 155/71 98 10/27/16 14:06 21 9/20/17 08:00 Nasal Cannula 2.0 Intake and Output 10/26/16 10/26/16 10/27/16 15:00 23:00 07:00 Intake Total 1900 ml 2210 ml Output Total 1000 ml 1000 ml Balance 900 ml 1210 ml Results Result Diagram: 10/27/16 0745 10/27/16 0745 Results 24 hrs Laboratory Tests Test 10/27/16 07:45 White Blood Count 5.5 Red Blood Count 6.04 Hemoglobin 13.0 L Hematocrit 42.3 Mean Corpuscular Volume 70.0 L Mean Corpuscular Hemoglobin 21.5 L Mean Corpuscular Hemoglobin Concent 30.7 L Red Cell Distribution Width 14.5 Platelet Count 373 Mean Platelet Volume 9.5 Neutrophils % 55.5 Lymphocytes % 27.6 Monocytes % 9.0 Eosinophils % 6.5 Basophils % 0.5 Nucleated Red Blood Cells % 0.0 Neutrophils # 3.1 Lymphocytes # 1.5 Monocytes # 0.5 Eosinophils # 0.4 Basophils # 0.0 Nucleated Red Blood Cells # 0.0 Sodium Level 141 Potassium Level 4.7 Chloride Level 106 Carbon Dioxide Level 27 Anion Gap 13 Blood Urea Nitrogen 10 Creatinine 0.93 Glucose Level 100 Calcium Level 8.9 Medications Medications Current Medications Acetaminophen (Tylenol Tab) 650 mg Q4H PRN PO PAIN AND OR ELEVATED TEMP; Start 10/22/16 at 20:00 Acetaminophen/ Hydrocodone Bitart ([place] (5/325)) 1 tab Q6H PRN PO MODERATE PAIN LEVEL 4-6 Last administered on 10/26/16 08:51; Admin Dose 1 TAB; Start at 20:00 Promethazine HCl/ Codeine 10 ml 10 ml Q8 PO Last administered on 10/27/16 13: 31; Admin Dose 10 ML; Start 10/22/16 at 22:00 Potassium Chloride/Sodium Chloride (NS-KCl 20 Meq) 1,000 ml @ 75 mls/hr [id number] IV Last administered on 10/27/16 13:31; Admin Dose 75 MLS/HR; Start at 11:00 Morphine Sulfate (morphine) 4 mg Q4H PRN IV PAIN LEVEL 6-10 Last administered on 10/27/16 13:32; Admin Dose 4 MG; Start 10/23/16 at 12:00 Clonidine (Catapres) 0.1 mg Q6H PRN PO ELEVATED BLOOD PRESSURE Last administered on 10/26/16 20:34; Admin Dose 0.1 MG; Start 10/24/16 at 10:00 Hydralazine HCl (Apresoline) 25 mg Q6H PRN PO ELEVATED BLOOD PRESSURE Last administered on 10/26/16 09:13; Admin Dose 25 MG; Start 10/24/16 at 17:00 Polysaccharide Iron Complex (Niferex-150) 1 cap BID PO Last administered on 08:49; Admin Dose 1 CAP; Start 10/25/16 at 21:00 Apixaban (Eliquis) 10 mg BID PO Last administered on 10/27/16 08:49; Admin Dose 10 MG; Start 10/25/16 at 21:00; Stop 10/31/16 at 23:59 Apixaban (Eliquis) 5 mg BID PO ; Start 11/01/16 at 09:00 Polyethylene Glycol (Miralax) 17 gm DAILY PRN NGT CONSTIPATION; Start 10/25/16 at 17:00 Docusate Sodium (Colace) 100 mg DAILY PRN PO CONSTIPATION; Start 10/25/16 at 17 :00 Levofloxacin (Levaquin) 750 mg DAILY@06 PO Last administered on 10/27/16 05:27 ; Admin Dose 750 MG; Start 10/27/16 at 06:00 EMMETT AKHTAR MD Oct 27, 2016 17:41
[2016-10-28] VITALS (12 sets, daily range): BP systolic 134–175; BP diastolic 72–90; PULSE 52–113; RESP 18–19
[2016-10-28] MEDS: LEVALBUTEROL (NEB) 0.63 MG/3 ML AMP HHN SCH ×4 (01:28→20:06)
[2016-10-28] MEDS: LEVOFLOXACIN 750 MG TABLET PO SCH (05:29)
[2016-10-28] MEDS: PROMETHAZINE/CODEINE 5ML CUP PO SCH ×3 (05:30→20:32)
[2016-10-28] MEDS: NS + KCL 20 MEQ 1,000 ML IV SCH ×2 (05:31→20:38)
[2016-10-28] MEDS: morphine 4 MG/ML VIAL IV PRN ×2 (05:32→20:31)
[2016-10-28 07:17] LABS: BASOPHILS % 0.4 % (0.0-2.0); EOSINOPHILS # 0.4 10^3/ul (0.0-0.5); EOSINOPHILS % 5.6 % (0.0-7.0); HEMATOCRIT 42.4 % (42.0-52.0); HEMOGLOBIN 13.1 g/dl (14.0-18.0); LYMPHOCYTES # 1.9 10^3/ul (0.8-2.9); LYMPHOCYTES % 28.3 % (15.0-51.0); MEAN CORPUSCULAR HEMOGLOBIN 21.4 pg (29.0-33.0); MEAN CORPUSCULAR HGB CONC 30.9 g/dl (32.0-37.0); MEAN CORPUSCULAR VOLUME 69.4 fl (82.0-101.0); MEAN PLATELET VOLUME 8.9 fl (7.4-10.4); MONOCYTE # 0.5 10^3/ul (0.3-0.9); NEUTROPHIL # 3.9 10^3/ul (1.6-7.5); NEUTROPHILS % 57.7 % (39.0-77.0); PLATELET COUNT 408 10^3/UL (140-415); RED BLOOD COUNT 6.11 10^6/ul (4.70-6.10); RED CELL DISTRIBUTION WIDTH 14.8 % (11.5-14.5); WHITE BLOOD COUNT 6.8 10^3/ul (4.8-10.8)
[2016-10-28 07:43] LABS: CREATININE 0.96 mg/dl (0.61-1.24); POTASSIUM 4.5 mmol/L (3.5-5.1)
[2016-10-28] MEDS: POLYSACCHARIDE IRON COMPLEX CAP PO SCH ×2 (09:09→20:31)
[2016-10-28] MEDS: APIXABAN 5 MG TABLET PO SCH ×2 (09:09→20:31)
--- NOTE | 2016-10-28 12:28 | CONS ---
Date/Time of Note Date/Time of Note DATE: 10/28/16 TIME: 12:25 Assessment/Plan Assessment/Plan Chief Complaint/Hosp Course IMP: 1. Chest pain-likely secondary to recurrent PE/TROP NEG X 3/nl ef by echo with no sig strain by echo read 2. HTN 3. PNA 4.Diastolic dysfunction by echo this admit 5. Renal insuff/failure-IMPROVED 6. BRadycardia 7. PAF-likely short run on tele 10/28. self limited Recc: -Tele -serial ecg's -Continue eliquis -Await venous almita to asssess thrombus burden -start ACEI to improve BP control -check TSH Problems: Consultation Date/Type/Reason Admit Date/Time Oct 22, 2016 at 17:12 Initial Consult Date 10/25/16 Type of Consultation: cardiology Reason for Consultation chest pain Referring Provider: LO DICKERSON MD Exam/Review of Systems Vital Signs Vitals Vital Signs Date Time Temp Pulse Resp B/P Pulse Ox O2 Delivery O2 Flow Rate FiO2 10/28/16 12:17 53 10/28/16 09:19 174/90 10/28/16 07:55 98.1 18 99 10/28/16 07:50 21 10/27/16 20:00 Nasal Cannula 2.0 Intake and Output 10/27/16 10/27/16 10/28/16 15:00 23:00 07:00 Intake Total 900 ml Balance 900 ml Exam Review of Systems: CONSTITUTIONAL: No fevers, chills. PULMONARY: No sob CARDIOVASCULAR: No chest pain/palpitations GASTROINTESTINAL: No nausea/vomiting. GENITOURINARY: No hematuria/dysuria. MUSCULOSKELETAL: No myagias/arthalgias. PSYCHIATRIC: The patient denies depression. NEUROLOGIC: No weakness Constitutional: alert Psych: no complaints Head: normocephalic ENMT: mucosa pink and moist Neck: jvd (9 cm water), supple Respiratory: diminished breath sounds (at bases/B) Cardiovascular: irregular rhythm Gastrointestinal: non-tender, soft Musculoskeletal: muscle tone (normal) Extremities: edema (none) Neurological: other (No focal deficits) Results Result Diagram: 10/28/16 0634 10/28/16 0634 Results 24 hrs Laboratory Tests Test 10/28/16 06:34 White Blood Count 6.8 # Red Blood Count 6.11 H Hemoglobin 13.1 L Hematocrit 42.4 Mean Corpuscular Volume 69.4 L Mean Corpuscular Hemoglobin 21.4 L Mean Corpuscular Hemoglobin Concent 30.9 L Red Cell Distribution Width 14.8 H Platelet Count 408 Mean Platelet Volume 8.9 Neutrophils % 57.7 Lymphocytes % 28.3 Monocytes % 7.0 Eosinophils % 5.6 Basophils % 0.4 Nucleated Red Blood Cells % 0.0 Neutrophils # 3.9 Lymphocytes # 1.9 Monocytes # 0.5 Eosinophils # 0.4 Basophils # 0.0 Nucleated Red Blood Cells # 0.0 Sodium Level 142 Potassium Level 4.5 Chloride Level 104 Carbon Dioxide Level 29 Anion Gap 14 Blood Urea Nitrogen 12 Creatinine 0.96 Glucose Level 98 Calcium Level 9.0 Medications Medications Current Medications Acetaminophen (Tylenol Tab) 650 mg Q4H PRN PO PAIN AND OR ELEVATED TEMP; Start 10/22/16 at 20:00 Acetaminophen/ Hydrocodone Bitart ([place] (5/325)) 1 tab Q6H PRN PO MODERATE PAIN LEVEL 4-6 Last administered on 10/26/16 08:51; Admin Dose 1 TAB; Start at 20:00 Promethazine HCl/ Codeine 10 ml 10 ml Q8 PO Last administered on 10/28/16 05: 30; Admin Dose 10 ML; Start 10/22/16 at 22:00 Potassium Chloride/Sodium Chloride (NS-KCl 20 Meq) 1,000 ml @ 75 mls/hr [id number] IV Last administered on 10/28/16 05:31; Admin Dose 75 MLS/HR; Start at 11:00 Morphine Sulfate (morphine) 4 mg Q4H PRN IV PAIN LEVEL 6-10 Last administered on 10/28/16 05:32; Admin Dose 4 MG; Start 10/23/16 at 12:00 Clonidine (Catapres) 0.1 mg Q6H PRN PO ELEVATED BLOOD PRESSURE Last administered on 10/26/16 20:34; Admin Dose 0.1 MG; Start 10/24/16 at 10:00 Hydralazine HCl (Apresoline) 25 mg Q6H PRN PO ELEVATED BLOOD PRESSURE Last administered on 10/28/16 09:18; Admin Dose 25 MG; Start 10/24/16 at 17:00 Polysaccharide Iron Complex (Niferex-150) 1 cap BID PO Last administered on 09:09; Admin Dose 1 CAP; Start 10/25/16 at 21:00 Apixaban (Eliquis) 10 mg BID PO Last administered on 10/28/16 09:09; Admin Dose 10 MG; Start 10/25/16 at 21:00; Stop 10/31/16 at 23:59 Apixaban (Eliquis) 5 mg BID PO ; Start 11/01/16 at 09:00 Polyethylene Glycol (Miralax) 17 gm DAILY PRN NGT CONSTIPATION; Start 10/25/16 at 17:00 Docusate Sodium (Colace) 100 mg DAILY PRN PO CONSTIPATION; Start 10/25/16 at 17 :00 Levofloxacin (Levaquin) 750 mg DAILY@06 PO Last administered on 10/28/16 05:29 ; Admin Dose 750 MG; Start 10/27/16 at 06:00 MICHELE MOYA Oct 28, 2016 12:28
--- NOTE | 2016-10-28 15:03 | RADRPT ---
PROCEDURE: US Lower extremity Venous. CLINICAL INDICATION: Pulmonary emboli. Lower extremity swelling. TECHNIQUE: Multiple sonographic images of the bilateral lower extremity deep venous system was obt ained utilizing agustin scale, color-flow, compressive sonography and doppler imaging with augmentation . COMPARISON: CT angiogram chest 10/22/2016 FINDINGS: Nearly occlusive thrombus in the right common femoral vein, femoral vein and popliteal vein. There is normal compressibility and flow within the left common femoral, femoral and popliteal veins . Visualized portions of the left calf veins are patent. IMPRESSION: Nearly occlusive thrombus from the right common femoral vein to the right popliteal vein. No sonographic evidence for left deep venous thrombosis. Results called to Leonardo Farmer) at 10/28/2016 2:57:18 PM. RPTAT:AAJJ Physician Mikey Date Time Electronically viewed and signed by Physician Mikey on 10/28/2016 15:02 /
--- NOTE | 2016-10-28 17:12 | PN ---
Date/Time of Note Date/Time of Note DATE: 10/28/16 TIME: 17:10 Assessment/Plan VTE Prophylaxis VTE Prophylaxis Intervention: SCD's Lines/Catheters IV Catheter Type (from [email or web address] Peripheral IV Urinary Cath still in place: No Assessment/Plan Assessment/Plan - Bilateral pulmonary embolism. Continue Eliquis. Dr. Merritt hematology consult is appreciated - Right LE-DVT- cont Eliquis - Lower lobe pneumonia continue Levaquin. - History of hypertension. Continue hydralazine as needed. Dr. Farmer is following and cardiology consultation. - Preserved EF - Tobacco dependence, cessation is strongly advised. - History of medical noncompliance. Further recommendations based on clinical course. Plan of care discussed with Dr. Madrid Subjective 24 Hr Interval Summary Constitutional: improved Cardiovascular: no complaints Gastrointestinal: no complaints Genitourinary: no complaints Musculoskeletal: no complaints Skin: no complaints Exam/Review of Systems Vital Signs Vitals Vital Signs Date Time Temp Pulse Resp B/P Pulse Ox O2 Delivery O2 Flow Rate FiO2 10/28/16 16:29 65 10/28/16 15:57 20 98 21 10/28/16 09:19 174/90 10/28/16 07:55 98.1 10/27/16 20:00 Nasal Cannula 2.0 Intake and Output 10/27/16 10/27/16 10/28/16 15:00 23:00 07:00 Intake Total 900 ml Balance 900 ml Exam Constitutional: alert, oriented Respiratory: clear to auscultation, normal air movement Cardiovascular: nl pulses Gastrointestinal: non-tender, soft Musculoskeletal: nl extremities to inspection Extremities: normal pulses Neurological: nl mental status, nl speech Results Result Diagram: 10/28/16 0634 10/28/16 0634 Results 24 hrs Laboratory Tests Test 10/28/16 06:34 White Blood Count 6.8 # Red Blood Count 6.11 H Hemoglobin 13.1 L Hematocrit 42.4 Mean Corpuscular Volume 69.4 L Mean Corpuscular Hemoglobin 21.4 L Mean Corpuscular Hemoglobin Concent 30.9 L Red Cell Distribution Width 14.8 H Platelet Count 408 Mean Platelet Volume 8.9 Neutrophils % 57.7 Lymphocytes % 28.3 Monocytes % 7.0 Eosinophils % 5.6 Basophils % 0.4 Nucleated Red Blood Cells % 0.0 Neutrophils # 3.9 Lymphocytes # 1.9 Monocytes # 0.5 Eosinophils # 0.4 Basophils # 0.0 Nucleated Red Blood Cells # 0.0 Sodium Level 142 Potassium Level 4.5 Chloride Level 104 Carbon Dioxide Level 29 Anion Gap 14 Blood Urea Nitrogen 12 Creatinine 0.96 Glucose Level 98 Calcium Level 9.0 Thyroid Stimulating Hormone (TSH) 7.030 H Medications Medications Current Medications Acetaminophen (Tylenol Tab) 650 mg Q4H PRN PO PAIN AND OR ELEVATED TEMP; Start 10/22/16 at 20:00 Acetaminophen/ Hydrocodone Bitart ([place] (5/325)) 1 tab Q6H PRN PO MODERATE PAIN LEVEL 4-6 Last administered on 10/26/16 08:51; Admin Dose 1 TAB; Start at 20:00 Promethazine HCl/ Codeine 10 ml 10 ml Q8 PO Last administered on 10/28/16 14: 22; Admin Dose 10 ML; Start 10/22/16 at 22:00 Potassium Chloride/Sodium Chloride (NS-KCl 20 Meq) 1,000 ml @ 75 mls/hr [id number] IV Last administered on 10/28/16 05:31; Admin Dose 75 MLS/HR; Start at 11:00 Morphine Sulfate (morphine) 4 mg Q4H PRN IV PAIN LEVEL 6-10 Last administered on 10/28/16 05:32; Admin Dose 4 MG; Start 10/23/16 at 12:00 Clonidine (Catapres) 0.1 mg Q6H PRN PO ELEVATED BLOOD PRESSURE Last administered on 10/26/16 20:34; Admin Dose 0.1 MG; Start 10/24/16 at 10:00 Hydralazine HCl (Apresoline) 25 mg Q6H PRN PO ELEVATED BLOOD PRESSURE Last administered on 10/28/16 09:18; Admin Dose 25 MG; Start 10/24/16 at 17:00 Polysaccharide Iron Complex (Niferex-150) 1 cap BID PO Last administered on 09:09; Admin Dose 1 CAP; Start 10/25/16 at 21:00 Apixaban (Eliquis) 10 mg BID PO Last administered on 10/28/16 09:09; Admin Dose 10 MG; Start 10/25/16 at 21:00; Stop 10/31/16 at 23:59 Apixaban (Eliquis) 5 mg BID PO ; Start 11/01/16 at 09:00 Polyethylene Glycol (Miralax) 17 gm DAILY PRN NGT CONSTIPATION; Start 10/25/16 at 17:00 Docusate Sodium (Colace) 100 mg DAILY PRN PO CONSTIPATION; Start 10/25/16 at 17 :00 Levofloxacin (Levaquin) 750 mg DAILY@06 PO Last administered on 10/28/16t 05:29 ; Admin Dose 750 MG; Start 10/27/16 at 06:00 Benazepril HCl (Lotensin) 10 mg BID PO ; Start 10/28/16 at 21:00 CRESENCIO DENISE Oct 28, 2016 17:12
--- NOTE | 2016-10-28 20:05 | CONS ---
Date/Time of Note Date/Time of Note DATE: 10/28/16 TIME: 20:01 Assessment/Plan Assessment/Plan Chief Complaint/Hosp Course Chief Complaint/Hosp Course #Bilateral Pulmonary emboli -patient admits to not having taken his medication prior to re-admission with worsening PE -would recommend to restart Eliquis 10mg BID x 7 days then switch to 5 mg BID -will communicate with primary to see if if is ok to make the switch from Lovenox to Eliquis now -given the extent of PE, pt will likely need lifelong anticoagulation -now that pt is off lovenox hypercoagulable workup was ordered yesterday. will follow up #Left Lower Lobe pneumonia -continue antibiotics #microcytosis -iron studies are consistent with iron deficiency -continue po iron at this time -Hb electrophoresis rules out beta thalassemia Problems: Consultation Date/Type/Reason Admit Date/Time Oct 22, 2016 at 17:12 Initial Consult Date 10/25/16 Type of Consultation: cardiology Reason for Consultation pulmonary emboli Referring Provider: LO DICKERSON MD 24 HR Interval Summary Free Text/Dictation no acute overnight events. pt continues on Eliquis. chest pain has improved Exam/Review of Systems Vital Signs Vitals Vital Signs Date Time Temp Pulse Resp B/P Pulse Ox O2 Delivery O2 Flow Rate FiO2 10/28/16 19:44 97.9 60 19 171/89 95 10/28/16 15:57 21 10/27/16 20:00 Nasal Cannula 2.0 Intake and Output 10/27/16 10/27/16 10/28/16 15:00 23:00 07:00 Intake Total 900 ml Balance 900 ml Exam Constitutional: alert Psych: no complaints Head: normocephalic Eyes: nl conjunctiva ENMT: nl external ears & nose Neck: non-tender, supple Respiratory: clear to auscultation, normal air movement Cardiovascular: regular rate and rhythm Gastrointestinal: soft Musculoskeletal: nl extremities to inspection Results Result Diagram: 10/28/16 0634 10/28/16 0634 Results 24 hrs Laboratory Tests Test 10/28/16 06:34 White Blood Count 6.8 # Red Blood Count 6.11 H Hemoglobin 13.1 L Hematocrit 42.4 Mean Corpuscular Volume 69.4 L Mean Corpuscular Hemoglobin 21.4 L Mean Corpuscular Hemoglobin Concent 30.9 L Red Cell Distribution Width 14.8 H Platelet Count 408 Mean Platelet Volume 8.9 Neutrophils % 57.7 Lymphocytes % 28.3 Monocytes % 7.0 Eosinophils % 5.6 Basophils % 0.4 Nucleated Red Blood Cells % 0.0 Neutrophils # 3.9 Lymphocytes # 1.9 Monocytes # 0.5 Eosinophils # 0.4 Basophils # 0.0 Nucleated Red Blood Cells # 0.0 Sodium Level 142 Potassium Level 4.5 Chloride Level 104 Carbon Dioxide Level 29 Anion Gap 14 Blood Urea Nitrogen 12 Creatinine 0.96 Glucose Level 98 Calcium Level 9.0 Thyroid Stimulating Hormone (TSH) 7.030 H Medications Medications Current Medications Acetaminophen (Tylenol Tab) 650 mg Q4H PRN PO PAIN AND OR ELEVATED TEMP; Start 10/22/16 at 20:00 Acetaminophen/ Hydrocodone Bitart ([place] (5/325)) 1 tab Q6H PRN PO MODERATE PAIN LEVEL 4-6 Last administered on 10/26/16 08:51; Admin Dose 1 TAB; Start at 20:00 Promethazine HCl/ Codeine 10 ml 10 ml Q8 PO Last administered on 10/28/16 14: 22; Admin Dose 10 ML; Start 10/22/16 at 22:00 Potassium Chloride/Sodium Chloride (NS-KCl 20 Meq) 1,000 ml @ 75 mls/hr [id number] IV Last administered on 10/28/16 05:31; Admin Dose 75 MLS/HR; Start at 11:00 Morphine Sulfate (morphine) 4 mg Q4H PRN IV PAIN LEVEL 6-10 Last administered on 10/28/16 05:32; Admin Dose 4 MG; Start 10/23/16 at 12:00 Clonidine (Catapres) 0.1 mg Q6H PRN PO ELEVATED BLOOD PRESSURE Last administered on 10/26/16 20:34; Admin Dose 0.1 MG; Start 10/24/16 at 10:00 Hydralazine HCl (Apresoline) 25 mg Q6H PRN PO ELEVATED BLOOD PRESSURE Last administered on 10/28/16 09:18; Admin Dose 25 MG; Start 10/24/16 at 17:00 Polysaccharide Iron Complex (Niferex-150) 1 cap BID PO Last administered on 09:09; Admin Dose 1 CAP; Start 10/25/16 at 21:00 Apixaban (Eliquis) 10 mg BID PO Last administered on 10/28/16t 09:09; Admin Dose 10 MG; Start 10/25/16 at 21:00; Stop 10/31/16 at 23:59 Apixaban (Eliquis) 5 mg BID PO ; Start 11/01/16 at 09:00 Polyethylene Glycol (Miralax) 17 gm DAILY PRN NGT CONSTIPATION; Start 10/25/16 at 17:00 Docusate Sodium (Colace) 100 mg DAILY PRN PO CONSTIPATION; Start 10/25/16 at 17 :00 Levofloxacin (Levaquin) 750 mg DAILY@06 PO Last administered on 10/28/16t 05:29 ; Admin Dose 750 MG; Start 10/27/16 at 06:00 Benazepril HCl (Lotensin) 10 mg BID PO ; Start 10/28/16 at 21:00 LUISA OLSEN M.D. Oct 28, 2016 20:04
[2016-10-28] MEDS: BENAZEPRIL 10 MG TAB PO SCH (20:33)
[2016-10-29 00:22] VITALS: PULSE 55
[2016-10-29] MEDS: LEVALBUTEROL (NEB) 0.63 MG/3 ML AMP HHN SCH ×2 (01:50→09:00)
[2016-10-29 03:28] VITALS: BP 164/79; RESP 19
[2016-10-29 04:25] VITALS: PULSE 46
[2016-10-29] MEDS: PROMETHAZINE/CODEINE 5ML CUP PO SCH (05:27)
[2016-10-29] MEDS: LEVOFLOXACIN 750 MG TABLET PO SCH (05:27)
[2016-10-29 07:40] VITALS: BP 168/81; RESP 18
[2016-10-29 07:43] VITALS: PULSE 142
[2016-10-29 08:25] VITALS: PULSE 48
[2016-10-29] MEDS: POLYSACCHARIDE IRON COMPLEX CAP PO SCH (08:41)
[2016-10-29] MEDS: BENAZEPRIL 10 MG TAB PO SCH (08:41)
[2016-10-29] MEDS: APIXABAN 5 MG TABLET PO SCH (08:41)
[2016-10-29 08:52] LABS: BASOPHILS % 0.7 % (0.0-2.0); EOSINOPHILS # 0.3 10^3/ul (0.0-0.5); EOSINOPHILS % 5.6 % (0.0-7.0); HEMATOCRIT 41.8 % (42.0-52.0); HEMOGLOBIN 12.8 g/dl (14.0-18.0); LYMPHOCYTES # 1.8 10^3/ul (0.8-2.9); LYMPHOCYTES % 30.5 % (15.0-51.0); MEAN CORPUSCULAR HEMOGLOBIN 21.2 pg (29.0-33.0); MEAN CORPUSCULAR HGB CONC 30.6 g/dl (32.0-37.0); MEAN CORPUSCULAR VOLUME 69.1 fl (82.0-101.0); MONOCYTE # 0.5 10^3/ul (0.3-0.9); NEUTROPHIL # 3.2 10^3/ul (1.6-7.5); PLATELET COUNT 451 10^3/UL (140-415); RED BLOOD COUNT 6.05 10^6/ul (4.70-6.10); RED CELL DISTRIBUTION WIDTH 14.7 % (11.5-14.5); WHITE BLOOD COUNT 5.9 10^3/ul (4.8-10.8)
[2016-10-29 09:20] LABS: CALCIUM 8.8 mg/dl (8.4-10.2); CREATININE 0.93 mg/dl (0.61-1.24); POTASSIUM 4.3 mmol/L (3.5-5.1)
--- NOTE | 2016-10-29 19:14 | DS ---
Date/Time of Note Date/Time of Note DATE: 10/29/16 TIME: 19:11 Discharge Summary Admission/Discharge Info Admit Date/Time Oct 22, 2016 at 17:12 Discharge Date/Time Oct 29, 2016 at 11:18 Hx of Present Illness Patient is a 56-year-old gentleman well known to me from recent admission. Patient has history of hypertension and pulmonary embolism. Patient's history dates back to June 2016 when he was diagnosed with pulmonary embolism. Patient was given Lovenox and subsequently was discharged home on Eliquis. Patient is noncompliant with his care and in fact at one time left against medical advice on 08/20/2016, and had come back that same day due to increasing symptom. Patient stated that he has not been taking his medications for more than two weeks and came to ER with right-sided pleuritic chest pain. Patient has dry cough and was mildly short of breath. Patient did not have any fever or chills. No reported leg pain. No reported leg edema. No reported abdominal pain. Patient did have blood-tinged sputum. Patient was seen in ER and had CT pulmonary angiogram which revealed large bilateral pulmonary emboli in the right main pulmonary artery and left main pulmonary artery larger than seen previously but clear on the right. Multiple filling defects are present within this vessel in all lobes bilaterally. There is mild patchy airspace disease at the right lung base posteriorly which may be due to pneumonia or developing infarct. Lungs otherwise are clear. Patient had mild leukocytosis, however, did not have any left shift. Patient was not tachycardic and was hemodynamically stable. Patient did receive IV Dilaudid, aspirin and IV Zofran in ER and is being admitted for further evaluation and management. Patient denied any abdominal pain. No reported vomiting or diarrhea. No reported headache, dizziness, syncope. Patient did report mild chills prior to coming to the hospital and had one reading of temperature 101.2. Since then, he has subsequently remained afebrile. Patient is being admitted for further evaluation and management. Hospital Course Patient left AMA - Bilateral pulmonary embolism. Continue Eliquis. Dr. Merritt hematology consult is appreciated. Lifelong anticoagulation is recommended. - Nearly occlusive thrombus from the right common femoral vein to the right popliteal vein. - Lower lobe pneumonia continue Levaquin. - History of hypertension. Continue hydralazine as needed. Dr. Farmer is following and cardiology consultation. - Preserved EF - Tobacco dependence, cessation is strongly advised. - History of medical noncompliance. Home Meds Discontinued Scripts Levofloxacin* (Levaquin*) 500 Mg Tablet, 500 MG PO DAILY for 5 Days, TAB Prov:JOVANNYGUNJAN 08/24/16 [Nicotine (14 Mg/24 Hr)] 1 PATCH PATCH No Conflict Check, 1 PATCH TRANSDERM DAILY for 30 Days Prov:GUNJAN PETTY 08/24/16 Amlodipine Besylate* (Amlodipine Besylate*) 10 Mg Tablet, 10 MG PO DAILY for 30 Days, TAB Prov:GUNJAN PETTY 08/24/16 Apixaban* (Eliquis*) 5 Mg Tablet, 5 MG PO BID for 30 Days, TAB Prov:GUNJAN PETTY 08/24/16 Primary Care Provider Not On Staff Doctor Pending Labs Laboratory Tests Test 10/29/16 07:44 White Blood Count 5.910^3/ul (4.8-10.8) Red Blood Count 6.0510^6/ul (4.70-6.10) Hemoglobin 12.8g/dl (14.0-18.0) Hematocrit 41.8% (42.0-52.0) Mean Corpuscular Volume 69.1fl (82.0-101.0) Mean Corpuscular Hemoglobin 21.2pg (29.0-33.0) Mean Corpuscular Hemoglobin Concent 30.6g/dl (32.0-37.0) Red Cell Distribution Width 14.7% (11.5-14.5) Platelet Count 16389^3/UL (140-415) Mean Platelet Volume 9.0fl (7.4-10.4) Neutrophils % 54.0% (39.0-77.0) Lymphocytes % 30.5% (15.0-51.0) Monocytes % 8.0% (0.0-11.0) Eosinophils % 5.6% (0.0-7.0) Basophils % 0.7% (0.0-2.0) Nucleated Red Blood Cells % 0.0/100WBC (0.0-0.0) Neutrophils # 3.210^3/ul (1.6-7.5) Lymphocytes # 1.810^3/ul (0.8-2.9) Monocytes # 0.510^3/ul (0.3-0.9) Eosinophils # 0.310^3/ul (0.0-0.5) Basophils # 0.010^3/ul (0.0-0.1) Nucleated Red Blood Cells # 0.010^3/ul (0.0-0.0) Sodium Level 138mmol/L (135-144) Potassium Level 4.3mmol/L (3.5-5.1) Chloride Level 106mmol/L (97-110) Carbon Dioxide Level 26mmol/L (21-31) Anion Gap 10 (8-16) Blood Urea Nitrogen 14mg/dl (7-20) Creatinine 0.93mg/dl (0.61-1.24) Glucose Level 90mg/dl (70-220) Calcium Level 8.8mg/dl (8.4-10.2) GUNJAN PETTY Oct 29, 2016 19:14
[2016-10-30 13:22] LABS: PROTEIN C 96 % normal (70-180)
[2016-11-01] MEDS ORDERED: APIXABAN 5 MG TABLET PO SCH (09:00)
== END 2016-10-29 11:18 | disposition left against medical advice (07) | DRG 175 ==
LOC: E/R 16:08 → TEL 17:12
PROVIDERS: ADMIT Internal Medicine; ATTEND Internal Medicine
DX: I26.99 Other pulmonary embolism without acute cor pulmonale (principal); J18.9 Pneumonia, unspecified organism; I47.2 Ventricular tachycardia; N17.9 Acute kidney failure, unspecified; I82.411 Acute embolism and thrombosis of right femoral vein; I82.431 Acute embolism and thrombosis of right popliteal vein; I10 Essential (primary) hypertension; D50.9 Iron deficiency anemia, unspecified; Z79.01 Long term (current) use of anticoagulants; Z72.0 Tobacco use; Z91.14 Patient's other noncompliance with medication regimen; I27.82 Chronic pulmonary embolism
CPT/HCPCS: 36415; 71010; 71275; 80048; 80053; 80061; 81240; 82550; 82553; 82728; 83020; 83540; 83890; 84443; 84484; 85025; 85300; 85302; 85305; 85613; 86146; 86147; 93005; 93306; 93970; 94640; 94664; 96372; 96374; 96375; J1170; J1650; J1956; J2270; J2405; J3480; Q9967

== ENCOUNTER 2016-12-31 14:27 | Emergency (ER) | payer OTHER ==
[~2016-12-31] VITALS: Wt 76.6 kg
[2016-12-31] MEDS ORDERED: ONDANSETRON (ODT) 4 MG TAB ODT STA (17:17)
[2016-12-31] MEDS ORDERED: MECLIZINE 12.5 MG TAB PO ONE (17:30)
[2016-12-31] MEDS ORDERED: MECL-77 PO (17:59)
[2016-12-31] MEDS ORDERED: AZIT250T94 PO (17:59)
[2016-12-31] MEDS ORDERED: D-ME473S2 PO (17:59)
--- NOTE | 2016-12-31 18:03 | ERD ---
ER Documentation Chief Complaint Chief Complaint dizziness, headache, cough, no sob HPI 56-year-old male complains of a spinning type dizziness associated some mild headache on the right side for last few days. He also has congestion cough and some right ear congestion. Denies any bowel or bladder incontinence, weakness, history of trauma, fevers. He had some intermittent right hand numbness 2 days ago which resolved and is concerned about his heart. Denies any chest pain or shortness of breath. ROS All systems reviewed and are negative except as per history of present illness. Medications Home Meds Active Scripts Dextromethorphan Hb-Promethazine Hcl* (Promethazine DM* Syrup) 473 Ml Syrup, 5 ML PO Q6 Y for COUGH for 5 Days, ML Prov:RADHA PETERS MD 12/31/16 Meclizine Hcl* (Meclizine Hcl*) 25 Mg Tablet, 25 MG PO Q8H Y for DIZZINESS, #14 TAB Prov:RADHA PETERS MD 12/31/16 Azithromycin* (Zithromax*) 250 Mg Tablet, 250 MG PO .ZPACK DIRECTED, #6 TAB TAKE 500 MG (2 TABS) THE FIRST DAY THEN 250 MG (1 TAB) DAYS 2-5 Prov:RADHA PETERS MD 12/31/16 Allergies Allergies: Coded Allergies: No Known Allergy (Unverified , 12/31/16) PMhx/Soc History of Surgery: No Anesthesia Reaction: No Hx Neurological Disorder: No Hx Respiratory Disorders: No Hx Cardiac Disorders: No Hx Psychiatric Problems: No Hx Miscellaneous Medical Probl: No Hx Alcohol Use: Yes Hx Substance Use: Yes Hx Tobacco Use: Yes Smoking Status: Current some day smoker Physical Exam Vitals Vital Signs Date Time Temp Pulse Resp B/P Pulse Ox O2 Delivery O2 Flow Rate FiO2 12/31/16 14:30 98.6 63 17 141/75 99 Physical Exam Const: [] Alert, [id number]. Head: Atraumatic Eyes: Normal Conjunctiva ENT: Normal External Ears, Nose and Mouth. Right TM with decreased light reflex and yellow fluid. Neck: Full range of motion..~ No meningismus. Resp: Clear to auscultation bilaterally Cardio: Regular rate and rhythm, no murmurs Abd: Soft, non tender, non distended. Normal bowel sounds Skin: No petechiae or rashes Back: No midline or flank tenderness Ext: No cyanosis, or edema Neur: Awake and alert with slightly reproducible vertigo primarily to the left. No cerebellar signs. No appreciable focal neurologic deficits. Normal gait. Psych: Normal Mood and Affect Results 24 hrs Current Medications Medications (Trade) Dose Ordered Sig/Richelle Route PRN Reason Start Time Stop Time Status Last Admin Dose Admin Ondansetron HCl (Zofran Odt) 8 mg ONCE STAT ODT 12/31/16 17:17 12/31/16 17:18 DC 12/31/16 17:27 Meclizine HCl (Antivert) 25 mg ONCE ONCE PO 12/31/16 17:30 12/31/16 17:31 DC 12/31/16 17:27 Procedures/MDM EKG: Rate/Rhythm: [Normal Sinus Rhythm] rate equals 56 QRS, ST, T-waves: [No changes consistent w/ acute ischemia] Impression: [No evidence of ischemia or arrhythmia] impression-sinus bradycardia without acute findings of ischemia or arrhythmia. Patient was given Antivert 25 mg by mouth and Zofran 8 mg of mouth. Brain was performed given the patient's age and atypical symptoms of vertigo. Read as normal by the radiologist. Patient has signs of reproducible vertigo and signs of otitis media. There is no evidence of meningitis, neurologic deficits, central lesions. No evidence of cerebellar signs. We treated with Zithromax and Antivert and further observation at home and primary care follow-up. The patient was stable with no new complaints during the ER course. Clinically, there is no current evidence to suggest meningitis, sepsis, acute abdomen, pneumonia, acute coronary syndrome , pulmonary embolism, or any other emergent condition appearing to require further evaluation or hospitalization. The patient should certainly return for any new or worsening symptoms per the aftercare instructions. They should otherwise follow-up with her primary care doctor for reevaluation this week. Departure Diagnosis: Primary Impression: Otitis media Otitis media type: unspecified Laterality: right Qualified Code: H66.91 - Right otitis media, unspecified otitis media type Additional Impression: Dizziness Condition: Stable Patient Instructions: Inner Ear Problems: Causes of Dizziness (Vertigo), Otitis Media, Abx Tx (Adult) Additional Instructions: Patient's normal today. Likely vertigo. We will treat for findings of infection of ear. Recheck with primary doctor or for new or worsening symptoms. TEEHEE,RADHA N. MD Dec 31, 2016 18:03
--- NOTE | 2016-12-31 18:15 | RADRPT ---
PROCEDURE: CT head without contrast. CLINICAL INDICATION: Dizziness, headache, cough, abdominal pain. TECHNIQUE: Multiple contiguous axial images were obtained from the base of the skull to the vertex without administration of intravenous contrast. Coronal and sagittal reformats were obtained. The total exam CTDI equals 44.7 mGy and the total exam DLP equals 720.2 mGy-cm. DICOM images are avail able. One or more of the following dose reduction techniques were utilized: - Automated exposure control - Adjustment of the mA and/or kV according to patient size - Use of iterative reconstruction technique COMPARISON: None. FINDINGS: The ventricles, basal cisterns and sulcal pattern are within normal limits for patient's stated age. A cavum septum pellucidum present. There is no acute mass effect, midline shift or hemorrhage. No extra-axial fluid collections are identified. The bones of the calvarium are intact. The paranasal sinuses and bilateral mastoid complexes are gr ossly within normal limits. IMPRESSION: 1. No acute intracranial pathology. RPTAT:AAJJ Physician Davide Date Time Electronically viewed and signed by Physician Davide on 12/31/2016 18:15 QL/
== END 2016-12-31 18:47 | disposition home or self-care (01) ==
LOC: FTE 14:27
DX: H66.91 Otitis media, unspecified, right ear (principal); F17.210 Nicotine dependence, cigarettes, uncomplicated
CPT/HCPCS: 70450; Z7502; Z7610; 93005

== ENCOUNTER 2017-03-16 06:52 | Emergency (ER) | END 2017-03-16 12:23 | disposition home or self-care (01) ==